=== PATIENT | female | born 2000 | race Caucasian/White ===

== ENCOUNTER → 2022-11-06 16:34 | Outpatient (CLI) | payer BC, SELFPAY ==
--- NOTE | 2022-11-06 16:58 | XR_ITS ---
PROCEDURE INFORMATION: Exam: XR Lumbosacral Spine Exam date and time: 11/06/2022 5:00 PM Age: 22 years old Clinical indication: Low back pain; Additional info: Left low back pain with bilateral sciatica TECHNIQUE: Imaging protocol: Radiologic exam of the lumbosacral spine. Views: 2 or 3 views. COMPARISON: No relevant prior studies available. FINDINGS: Bones/joints: Lumbar curvature and alignment is unremarkable. There is no fracture or spondylolisthesis. Pedicles are intact. Disc heights are maintained. No significant degenerative changes. Soft tissues: Paraspinal soft tissues are unremarkable. IMPRESSION: Normal lumbar spine.
== END ==
PROVIDERS: PCP Nurse Practitioner; Visit Provider Nurse Practitioner
DX: M54.41 Lumbago with sciatica, right side (principal); M54.42 Lumbago with sciatica, left side; M62.830 Muscle spasm of back
CPT/HCPCS: 72100

== ENCOUNTER → 2022-11-15 10:52 | Outpatient (CLI) | payer BC, SELFPAY ==
--- NOTE | 2022-11-15 10:53 | MR_ITS ---
FINAL REPORT TECHNIQUE: Multiplanar and multisequence imaging of the lumbar spine was obtained without contrast. CLINICAL HISTORY: left low back pain with bilateral sciatica. COMPARISON: none FINDINGS: There is normal alignment of the lumbar vertebral bodies. Vertebral body height is preserved. The spinal cord ends at the level of L1. There is normal signal intensity within the substance of the distal spinal cord. Bone marrow signal intensity is normal. No acute paraspinal abnormality is identified. Incidental note is made of horseshoe kidney. L1-2: There is no focal disc herniation, central canal stenosis or neuroforaminal narrowing. L2-3: There is no focal disc herniation, central canal stenosis or neuroforaminal narrowing. L3-4: There is no focal disc herniation, central canal stenosis or neuroforaminal narrowing. L4-5: Annular bulge with very mild degenerative endplate changes and facet osteoarthropathy. Mild central canal stenosis and left foraminal narrowing. L5-S1: Very mild annular bulge. No central canal stenosis or significant foraminal narrowing. IMPRESSION: Early degenerative change at L4-5 and L5-S1. Otherwise no acute process. Incidental finding of horseshoe kidney. Reviewed, Interpreted and Dictated by Desirae Cheng MD Transcribed by Lelo Crowell Authenticated and [facility]
== END ==
PROVIDERS: PCP Nurse Practitioner; Visit Provider Nurse Practitioner
DX: M54.41 Lumbago with sciatica, right side (principal); M54.42 Lumbago with sciatica, left side; M62.830 Muscle spasm of back
CPT/HCPCS: 72148; 76376

== ENCOUNTER → 2025-09-07 16:01 | Outpatient (CLI) | payer OTHER, SELFPAY ==
--- OUTSIDE RECORDS SUMMARY | 2025-07-12 09:00 | XMS_ITS | Encounter Summary ---
Author Organization [facility] (a[facility]a. [facility] [employer] [facility]) Address [address] [place] [address] Care Team Providers Care Websphere Consultant Name Role Phone Unassigned, Doctor Primary Care Provider Unav ailable Reason for Visit * Radiology Services (Routine) - Authorized Specialty Diagnoses / Procedures Referred By Gene fonseca Referred To Contact Radiology Diagnoses Encounter for supervision of low-risk in second trimester Procedures US OB ULTRASOUND COMP W DETAILED CALLIE Iona Soria MD [address] [place] [address] Phone: tel: fax: [facility] Obstetrics and Gynecology [facility] [address] [address] Phone: tel: fax: Referral ID Status Reason Start Date Expiration Date V isits Requested Visits Authorized [id number] Authorized 06/22/2025 06/22/2026 1 1 Encounter Details Date Type Department Care Team (Late st Contact Info) Description 07/12/2025 10:00 AM EDT Ancillary Procedure [facility] Obstetrics and Gynecology [address] [address] Social History Tobacco Use Types Packs/Day Years Used Date Smoking Tobacco: Every Day Cigarettes 1 5 Smokeless Tobacco: Never Alcohol Use Standard Drinks/Week Comments Not Currently 0 (1 standard drink = 0.6 oz pur e alcohol) PHQ-2 Answer Date Recorded Patient Health Questionnaire-2 Score 0 06/22/2025 Education Answer Date Recorded What is the highest level of school you have completed or the highest degree you have received? Some college, no degree 06/22/2025 Estimated Date of Delivery Comme nts Yes 10/03/2025 Based on Ultraso und Sex and Gender Information Value Date Recorded Sex Assigned at Not on file Legal Sex Female 2:01 PM EDT Gender Identity Not on file Sexual Orientation Not on file documented as of this encounter Functional Status * Narx Overdose Risk Score Question Answer Date of Assessment Author Status Overdose Risk Score 280 07/12/2025 9:56 AM EDT Inte rface, Appriss Aman Active * Narx Scores Question Answer Date of Assessment Author Status Narcotic Score 020 07/12/2025 9:56 AM EDT Interface , Appriss Aman Active Sedative Score 010 07/12/2025 9:56 AM EDT Interface , Appriss Aman Active Stimulant Score 000 07/12/2025 9:56 AM EDT Interfac e, Appriss Aman Active documented as of this encounter Plan of Treatment Not on file documented as of this encounter Procedures Procedure Name Priority Date/Time Associated Diagnosis Comments US OB ULTRASOUND COMP W DETAILED CALLIE Routine 07/12/2025 11:13 AM EDT Encounter for supervision of low-risk in second trimester documented in this encounter Results * US OB ULTRASOUND COMP W DETAILED CALLIE (07/12/2025 11:13 AM EDT) Anatomical Region Laterality Modality Abdomen Ultrasound 07/12/2025 10:0 4 AM EDT Iona Soria MD RADIOLOGY US ORD ERABLES Final Result documented in this encounter Visit Diagnoses Diagnosis Encounter for supervision of low-risk in second trimester documented in this encounter Care Teams Websphere Consultant Relationship Specialty Start Date End Date Unassigned, MD [place] PCP - General Family Medicine 03/29/25 documented as of this encounter Additional Source Comments PROHIBITION ON REDISCLOSURE: In the event these records contain information protected by 42 CFR Part 2, (i.e., would identify the patient as a substance abuser and was obtained by a federally assisted substance abuse program to diagnose, refer for treatment, or treat the patient for substance abuse), please be advised of the following: This information has been disclosed to you from records protected by Federal confidentiality rules (42 CFR part 2). The Federal rules prohibit you from making any further disclosure of this information unless further disclosure is expressly permitted by the written consent of the person to whom it pertains or as otherwise permitted by 42 CFR part 2. A general authorization for the release of medical or other information is NOT sufficient for this purpose. The Federal rules restrict any use of this information to criminally investigate or prosecute any alcohol or drug abuse patient. [facility] ([facility])
--- OUTSIDE RECORDS SUMMARY | 2025-07-12 10:35 | XMS_ITS | Encounter Summary ---
Author Organization [facility] ([facility]) Address [address] [place] [address] Care Team Providers Care Storeperson Name Role Phone Unassigned, Doctor Primary Care Provider Unav ailable Reason for Referral * Radiology Services (Routine) - Authorized Specialty Diagnoses / Procedures Referred By Gene fonseca Referred To Contact Radiology Diagnoses Encounter for supervision of normal first in third trimester Procedures US OB REAL TIME FOLLOW [place] [address] [place] [address] Phone: tel: fax: [facility] Obstetrics and Gynecology [facility] [place] [address] [id number] Phone: tel: fax: Referral ID Status Reason Start Date Expiration Date V isits Requested Visits Authorized [id number] Authorized 07/12/2025 07/12/2026 1 1 Reason for Visit * Reason Comments Return OB Visit Encounter Details Date Type Department Care Team (Late st Contact Info) Description 07/12/2025 11:35 AM EDT Routine [facility] [address] [place], [place] [id number] Iona Soria MD [address] [place] [address] GA: [id number] Social History Tobacco Use Types Packs/Day Years Used Date Smoking Tobacco: Every Day Cigarettes 1 5 Smokeless Tobacco: Never Tobacco Cessation:Ready to Q uit: Not Asked; Counseling Given: Not Answered Alcohol Use Standard Drinks/Week Comments Not Currently [...] on file documented as of this encounter Last Filed Vital Signs Vital Sign Reading Time Taken Comments Blood Pressure 126/83 07/12/2025 11:40 AM EDT Pulse 97 07/12/2025 11:40 AM EDT Temperature - - Respiratory Rate - - Oxygen Saturation - - Inhaled Oxygen Concentration - - Weight 151.5 kg (334 lb 1.6 oz) 025 11:40 AM EDT Height 170.2 cm (5' 7 ) 07/12/2025 11:4 0 AM EDT Body Mass Index 52.33 07/12/2025 11:40 AM EDT documented in this encounter Functional Status * BP Answer Date of Assessment Author Status 126/83 07/12/2025 11:40 AM EDT Lacy King MA Active * Pulse Answer Date of Assessment Author Status 97 07/12/2025 11:40 AM EDT Lacy King MA Active * Height Answer Date of Assessment Author Status 67 07/12/2025 11:40 AM EDT Lacy King MA Active * Weight Answer Date of Assessment Author Status 5345.6 07/12/2025 11:40 AM EDT Lacy King MA Active * BMI Answer Date of Assessment Author Status 52.327 07/12/2025 11:40 AM Lacy Vidales MA Active * BSA Answer Date of Assessment Author Status 2.68 07/12/2025 11:40 AM Lacy Vidales MA Active documented as of this encounter Mental Status * BP Answer Entry Date Author Status 126/83 07/12/2025 11:40 AM Lacy Vidales MA Active * Pulse Answer Entry Date Author Status 97 07/12/2025 11:40 AM EDLacy Mendoza MA Active * BMI Answer Entry Date Author Status 52.327 07/12/2025 11:40 AM Lacy Vidales MA Active documented in this encounter Progress Notes * Iona Soria MD - 07/12/2025 11:35 AM EDT Images from the original note were not included. [address] [address] Return Obstetric Visit Subjective: Anali Perez is a 24yrs at 28w1d by 19wk US who presents for a routine visit. Problem List Leukocytosis Rh negative Anemia She reports that she is concerned about: Vaginal bleeding: No Contraction like pain: No Leakage of fluid: No Decreased movement: No Doing well. FAS performed today. Largely reassuring. Some SO structures noted. Discussed need for 3rd trimester labs today. She wants to do them another day. Too tired today. Still smoking some and counseled on cessation. Objective: Vitals (BP/HT/WT/BMI) BP 126/83 Pulse 97 Ht 5' 7 (1.702 m) Wt (!) 334 lb 1.6 oz (151.5 kg) LMP (LMP Unknown) BMI 52.33 kg/m?? Physical Exam Genitourinary: Uterus is not tender. Uterus exam comments: gravid. Pulmonary: Effort: Pulmonary effort is normal. Abdominal: Palpations: Abdomen is soft. Tenderness: There is no abdominal tenderness. Musculoskeletal: Right lower leg: No edema. Left lower leg: No edema. Neurological: Mental Status: She is alert. Psychiatric: Behavior: Behavior normal. Physical Exam cont'd: Cervical Exam: HR: 148 Fundal Height: (FAS performed today.) This visit UA: Recent Results (from the past 24 hours) URINE DIPSTICK (URINE ANALYZER) CLINIC PERFORMED W/CPT (61337) Result Value Ref Range Color, urine Yellow Yellow Appearance, urine Clear Clear Glucose, urine neg Negative - 100 mg/dL Bilirubin, urine neg Negative - Small Ketones, urine neg Negative - Trace mg/dl Specific [place], urine 1.020 1.000 - 1.030 Blood, urine neg Negative - Trace mg/dL pH, urine 7.0 5.0 - 8.5 Protein, urine neg Negative - Trace mg/dL Urobilinogen, urine 0.2 0.2 - 2 EU Nitrites, urine neg Negative - Positive Leukocyte Esterase, urine neg Negative - Trace A&P by Problem This is a 24yrs at 28w1d with: Assessment & Plan Encounter for supervision of normal first in third trimester Orders: URINE DIPSTICK (URINE ANALYZER) CLINIC PERFORMED W/CPT (97150) US OB REAL TIME FOLLOW UP, PER FETUS; Future GLUCOLA SCREEN; Future HIV AB/AG COMBINED ASSAY; Future RPR, REFLEX QN RPR/CONFIRM TP-PA ([facility]); Future CBC WITHOUT DIFFERENTIAL; Future ABO/RH (D); Future ANTIBODY SCREEN; Future Screening for viral disease Orders: HIV AB/AG COMBINED ASSAY; Future Screening examination for venereal disease Orders: RPR, REFLEX QN RPR/CONFIRM TP-PA ([facility]); Future Tobacco use disorder complicating , childbirth, or puerperium, antepartum Supervision of high risk in third trimester Follow up Return for KARLA in 2 weeks. KARLA/Growth in 4 weeks. KARLA in 6 weeks.. Labs ordered, she will come back before next visit to have labs drawn. labor precautions discussed and kick counts emphasized. Anticipatory guidance provided. Future Appointments Date Time Provider Department Center 07/13/2025 9:30 AM [facility] 07/15/2025 8:10 AM Janelle Pablo CNM [facility] 07/27/2025 3:30 PM [facility]/10/[facility]25 11:00 AM [facility] 08/10/2025 12:50 PM Melida Hernandez CNM [facility] 08/24/2025 11:10 AM Yaquelin Aguirre, [facility] Dante Soria MD 07/12/2025 documented in this encounter Plan of Treatment Scheduled Orders Name Type Priority Associated Diagnoses Orde r Schedule GLUCOLA SCREEN Laboratory Routine Encounter for supervision of normal first in third trimester Expected: 07/12/2025, Expires: 10/10/2025 HIV AB/AG COMBINED ASSAY Laboratory Routine Encounter for supervision of normal first in third trimester Screening for viral disease Expected: 07/12/2025, Expires: 10/10/2025 RPR, REFLEX QN RPR/CONFIRM TP-PA ([facility]) Laboratory Routine Encounter for supervision of normal first in third trimester Screening examination for venereal disease Expected: 07/12/2025, Expires: 10/10/2025 CBC WITHOUT DIFFERENTIAL Laboratory Routine Encounter for supervision of normal first in third trimester Expected: 07/12/2025, Expires: 10/10/2025 ABO/RH (D) Laboratory Routine Encounter for supervision of normal first in third trimester Expected: 07/12/2025, Expires: 10/10/2025 ANTIBODY SCREEN Laboratory Routine Encounter for supervision of normal first in third trimester Expected: 07/12/2025, Expires: 10/10/2025 documented as of this encounter Procedures Procedure Name Priority Date/Time Associated Diagnosis Comments URINE DIPSTICK (URINE ANALYZER) CLINIC PERFORMED W/CPT (61201) Routine 07/12/2025 Encounter for supervision of normal first in third trimester documented in this encounter Results * US OB REAL TIME FOLLOW UP, PER FETUS (08/10/2025 1:49 PM EST) Anatomical Region Laterality Modality Abdomen Ultrasound 08/10/2025 1:05 PM EST us Iona Soria MD RADIOLOGY US ORD ERABLES Final Result * (ABNORMAL) URINE DIPSTICK (URINE ANALYZER) CLINIC PERFORMED W/CPT (50680) (07/12/2025) Color, urine Yellow Yellow ACAD POC/CLINIC PERFORMED ([facility] CERTIFIED) Appearance, urine Clear Clear ACAD POC/CLINIC PERFORMED ([facility] CERTIFIED) Glucose, urine neg Negative - 100 mg/dL ACAD POC/CLINIC PERFORMED ([facility] CERTIFIED) Bilirubin, urine neg Negative - Small ACAD POC/CLINIC PERFORMED ([facility] CERTIFIED) Ketones, urine neg Negative - Trace mg/dl ACAD POC/CLINIC PERFORMED ([facility] CERTIFIED) Specific [place], urine 1.020 1.000 - 1.030 ACAD POC/CLINIC PERFORMED ([facility] CERTIFIED) Blood, urine neg Negative - Trace mg/dL ACAD POC/CLINIC PERFORMED ([facility] CERTIFIED) pH, urine 7.0 5.0 - 8.5 ACAD POC/CLINIC PERFORMED ([facility] CERTIFIED) Protein, urine neg Negative - Trace mg/dL ACAD POC/CLINIC PERFORMED ([facility] CERTIFIED) Urobilinogen, urine 0.2 0.2 - 2 EU ACAD POC/CLINIC PERFORMED ([facility] CERTIFIED) Nitrites, urine neg Negative - Positive ACAD POC/CLINIC PERFORMED ([facility] CERTIFIED) Leukocyte Esterase, urine neg Negative - Trace ACAD POC/CLINIC PERFORMED ([facility] CERTIFIED) Urine 07/12/2025 Iona Soria MD [facility] O RDERABLES Final Result ACAD POC/CLINIC PERFORMED ([facility] CERTIFIED) [address] [place] [address] documented in this encounter Visit Diagnoses Diagnosis Encounter for supervision of normal first in third trimester- Primary Supervision of normal first Screening for viral disease Special screening examination for unspecified viral disease Screening examination for venereal disease Tobacco use disorder complicating , childbirth, or puerperium, antepartum Supervision of high risk in third trimester Unspecified high-risk * Assessment & Plan Note - Iona Soria MD - 07/12/2025 11:35 AM EDTAssociated Problem(s): Care Orders: URINE DIPSTICK (URINE ANALYZER) CLINIC PERFORMED W/CPT (68325) US OB REAL TIME FOLLOW UP, PER FETUS; Future GLUCOLA SCREEN; Future HIV AB/AG COMBINED ASSAY; Future RPR, REFLEX QN RPR/CONFIRM TP-PA ([facility]); Future CBC WITHOUT DIFFERENTIAL; Future ABO/RH (D); Future ANTIBODY SCREEN; Future * Assessment & Plan Note - Iona Soria MD - 07/12/2025 11:35 AM EDTAssociated Problem(s): Tobacco Use Disorder documented in this encounter Care Teams Storeperson Relationship Specialty Start Date End Date Unassigned, MD [place] PCP - General Family Medicine 03/29/25 documented [...] prosecute any alcohol or drug abuse patient. [employer]
--- OUTSIDE RECORDS SUMMARY | 2025-07-15 07:10 | XMS_ITS | Encounter Summary ---
Author Organization [facility] [employer] (a.k.a. V Formerly [facility]) Address [address] [place] [address] Care Team Providers Care Riveter Portable Machine Name Role Phone Unassigned, Doctor Primary Care Provider Unav ailable Reason for Visit * Reason Comments Return OB Visit Encounter Details Date Type Department Care Team (Late st Contact Info) Description 07/15/2025 8:10 AM EDT Initial Replaced by [facility] [address] [place] [address] Janelle Pablo CNM [address] [place] [address] GA: 28w4d Social History Tobacco Use Types Packs/Day Years Used Date Smoking Tobacco: Every Day Cigarettes 1 5 Smokeless Tobacco: Never Tobacco Cessation:Ready to Q uit: No; Counseling Given: Yes Alcohol Use Standard Drinks/Week Comments Not Currently 0 (1 standard drink = 0.6 oz pur e alcohol) PHQ-2 Answer Date Recorded Patient Health Questionnaire-2 Score 0 06/22/2025 AUDIT-C Answer Date Recorded Q1: How often do you have a drink containing alcohol? Never 07/27/2025 Q2: How many drinks containi ng alcohol do you have on a typical day when you are drinking? Patient does not drink Q3: How often do you have si x or more drinks on one occasion? Never 07/27/2025 Education Answer Date Recorded What is the [...] Sign Reading Time Taken Comments Blood Pressure 135/84 07/15/2025 8:21 AM EDT Pulse 118 07/15/2025 8:21 AM EDT Temperature - - Respiratory Rate - - Oxygen Saturation - - Inhaled Oxygen Concentration - - Weight 151.1 kg (333 lb 3.2 oz) 07/15/2025 8:21 AM EDT Height 170.2 cm (5' 7 ) 07/15/2025 8:21 AM EDT Body Mass Index 52.19 07/15/2025 8:21 AM EDT documented in this encounter Functional Status * BP Answer Date of Assessment Author Status 135/84 07/15/2025 8:21 AM EDT Mani Weller CMA Active * Pulse Answer Date of Assessment Author Status 118 07/15/2025 8:21 AM EDT Mani Weller PRODUCT CONSULTANT Active * Height Answer Date of Assessment Author Status 67 07/15/2025 8:21 AM EDT Mani Weller CMA Active * Weight Answer Date of Assessment Author Status 5331.2 07/15/2025 8:21 AM EDT Mani Weller PRODUCT CONSULTANT Active * Narx Overdose Risk Score Question Answer Date of Assessment Author Status Overdose Risk Score 280 07/15/2025 8:15 AM EDT Inte rface, Appriss Aman Active * Narx Scores Question Answer Date of Assessment Author Status Narcotic Score 020 07/15/2025 8:15 AM EDT Interface , Appriss Aman Active Sedative Score 010 07/15/2025 8:15 AM EDT Interface , Appriss Aman Active Stimulant Score 000 07/15/2025 8:15 AM EDT Interfac e, Appriss Aman Active * BMI Answer Date of Assessment Author Status 52.186 07/15/2025 8:21 AM EDT Mani Weller PRODUCT CONSULTANT Active * BSA Answer Date of Assessment Author Status 2.67 07/15/2025 8:21 AM EDT Mani Weller CMA Active documented as of this encounter Mental Status * BP Answer Entry Date Author Status 135/84 07/15/2025 8:21 AM EDT Mani Weller CMA Active * Pulse Answer Entry Date Author Status 118 07/15/2025 8:21 AM EDT Mani Weller CMA Active * BMI Answer Entry Date Author Status 52.186 07/15/2025 8:21 AM EDT Mani Weller CMA Active documented in this encounter Progress Notes * Amigo, JanelleJESSA brown - 07/15/2025 8:10 AM EDT Images from the original note were not included. [address] [place] [address] New Patient Obstetric Visit Subjective: Anali Perez is a 24yrs at 28w4d who presents for an initial visit. Dating Summary Working JUAN F: 10/03/2025 based on Ultrasound on 05/11/2025 Based On JUAN F GA Diff Last Menstrual Period on 12/29/2024 (LMP Unknown) Ultrasound on 05/11/2025 10/03/2025 Working GA: 19w2d This is Unplanned, Desired. Problem List Leukocytosis Rh negative Anemia Tobacco Use Disorder Care She reports that she is concerned about: Vaginal bleeding: No Contraction like pain: No Leakage of fluid: No No concerns. OB History OB History Para Term AB Living 1 0 0 0 0 0 SAB IAB Ectopic Molar Multiple Live Births 0 0 0 0 0 0 # Outcome Date GA Lbr Harlan/2nd Weight Sex Type Anes PTL Lv 1 Current Gynecologic History: Last Pap: due; requests to defer to 36 weeks History of abnormal Pap Smears: No Sexual History She reports being sexually active and has had partner(s) who are male. She reports using the following method of control/protection: Condom. History of sexually transmitted infections? No History: Past Medical History Past Medical History[1] Past Surgical History Past Surgical History[2] Social Documentation Social History[3] Family History Family History[4] Current Outpatient Medications Medication Instructions ferrous sulfate (IRON ORAL) Oral, DIRECTED, Takes once or twice a week per pt PNV no.153/FA/om3/dha/epa/fish ( GUMMIES ORAL) Take by mouth. Allergies Allergies[5] Additional nurse intake screenings and questionnaires reviewed and incorporated into the care plan and problem list where appropriate. Objective: Vitals (BP/HT/WT/BMI) BP 135/84 (Cuff Size: Large Adult) Pulse (!) 118 Ht 5' 7 (1.702 m) Wt (!) 333 lb 3.2 oz (151.1 kg) LMP (LMP Unknown) BMI 52.19 kg/m?? Physical Exam Constitutional: Appearance: Normal appearance. She is obese. HENT: Right Ear: External ear normal. Left Ear: External ear normal. Nose: Nose normal. Cardiovascular: Rate and Rhythm: Normal rate and regular rhythm. Pulses: Normal pulses. Heart sounds: Normal heart sounds. No murmur heard. Pulmonary: Effort: Pulmonary effort is normal. Breath sounds: Normal breath sounds. Abdominal: Palpations: Abdomen is soft. There is no mass. Tenderness: There is no abdominal tenderness. Musculoskeletal: General: Normal range of motion. Cervical back: Neck supple. No tenderness. Right lower leg: No edema. Left lower leg: No edema. Lymphadenopathy: Cervical: No cervical adenopathy. Neurological: Mental Status: She is alert and oriented to person, place, and time. Deep Tendon Reflexes: Reflexes normal. Skin: General: Skin is warm and dry. Findings: No lesion or rash. Psychiatric: Mood and Affect: Mood normal. Behavior: Behavior normal. Vitals reviewed. This visit UA: No results found for this or any previous visit (from the past 24 hours). A&P by Problem This is a 24yrs at 28w4d with: Assessment & Plan Care - PTL precautions and kick counts reviewed - US from 07/12 reviewed; follow up incomplete anatomy on growth US in 4 weeks 28.1wk 07/12/25 1299g 2#14 65% MVP 7.0 Cephalic ANTERIOR gr 1 pl. 3VC. SO septum, LVOT, AA, pulmonary veins. - initial labs today; follow up results Orders: (PANEL)-CBC WITH DIFFERENTIAL; Future GLUCOSE TOLERANCE TEST 50G, 1 HOUR; Future HIV AB/AG COMBINED ASSAY; Future INITIAL SYPHILIS SCREEN (FTAB) W/ REFLEX TO RPR(EMC); Future ABO/RH (D); Future ANTIBODY SCREEN; Future ANTIBODY SCREEN CHLAMYDIA/GC AMPLIFIED PROBE; Future URINE DIPSTICK (URINE ANALYZER) CLINIC PERFORMED W/CPT (58091) Anemia - Fe supplement advised qod Rh negative - RhoGAM eval and administration today Orders: MATERNAL HEMORRHAGE SCREEN; Future Tobacco Use Disorder - expresses feeling guilty about smoking but feels like she's had too much stress to try to quit right now Need for rhogam due to Rh negative mother Orders: rho(D) immune globulin (RHOPHYLAC) 1,500 unit (300 mcg)/2 mL injection 300 mcg rho(D) immune globulin (RHOPHYLAC) 1,500 unit (300 mcg)/2 mL injection 300 mcg Monocytosis - follow up CBC Orders: (PANEL)-CBC WITH DIFFERENTIAL; Future BMI >50 - pipe setter referral At risk for domestic violence - SW referral Follow up Return for return visits as scheduled. Future Appointments Date Time Provider Department Center 07/27/2025 3:30 PM [facility] 08/10/2025 11:00 AM GREG MITCHELL OB ULTRASOUND 5 [facility] 08/10/2025 12:50 PM Melida Hernandez [facility] 08/24/2025 11:10 AM Yaquelin Aguirre [facility] ABRAHAM Valdez 07/15/2025 [1] Past Medical History: Diagnosis Date Obesity [2] Past Surgical History: Procedure Laterality Date TAYLOR - ABDOMINAL SURGERY SHX Right June 2024 Ovary removed [3] Social History Tobacco Use Smoking status: Every Day Current packs/day: 1.00 Average packs/day: 1 pack/day for 5.0 years (5.0 ttl pk-yrs) Types: Cigarettes Smokeless tobacco: Never Vaping Use Vaping status: Every Day Substances: Nicotine Substance Use Topics Alcohol use: Not Currently Drug use: Not Currently Types: Smoke [4] Family History Problem Relation Name Age of Onset Hypertension Father Antoine Perez Diabetes Father Antoine Perez [5] Allergies Allergen Reactions Clindamycin Hives documented in this encounter Plan of Treatment Pending Results Name Type Priority Associated Diagnoses Date /Time ABO/RH (D) Laboratory Routine Care 07/15/2025 10:38 AM EDT ANTIBODY SCREEN Laboratory Routine Care 07/15/2025 10:38 AM EDT Scheduled Orders Name Type Priority Associated Diagnoses Orde r Schedule ABO/RH (D) Laboratory Routine Care Expected: 07/15/2025, Expires: 10/13/2025 ANTIBODY SCREEN Laboratory Routine Care Expected: 07/15/2025, Expires: 08/14/2025 documented as of this encounter Procedures Procedure Name Priority Date/Time Associated Diagnosis Comments URINE DIPSTICK (URINE ANALYZER) CLINIC PERFORMED W/CPT (56324) Routine 07/15/2025 11:32 AM EDT Care CHLAMYDIA/GC AMPLIFIED PROBE Routine 07/15/2025 11:01 AM EDT Care INITIAL SYPHILIS SCREEN (FTAB) W/ REFLEX TO RPR(EMC) Routine 07/15/2025 10:38 AM EDT Care (PANEL)-CBC WITH DIFFERENTIAL Routine 07/15/2025 10:38 AM EDT Care Monocytosis CBC WITH DIFFERENTIAL Routine 07/15/2025 10:38 AM EDT Care HIV AB/AG COMBINED ASSAY Routine 07/15/2025 10:38 AM EDT Care GLUCOSE TOLERANCE TEST 50G, 1 HOUR Routine 07/15/2025 10:37 AM EDT Care MATERNAL HEMORRHAGE SCREEN Routine 07/15/2025 9:25 AM EDT Rh negative ANTIBODY SCREEN Routine 07/15/2025 9:25 AM EDT Care documented in this encounter Results * URINE DIPSTICK (URINE ANALYZER) CLINIC PERFORMED W/CPT (59870) (07/15/2025 11:32 AM EDT) Color, urine YELLOW Yellow ACAD POC/CLINIC PERFORMED (CLIA CERTIFIED) Appearance, urine CLEAR Clear [facility] POC/CLINIC PERFORMED (CLIA CERTIFIED) Glucose, urine NEG Negative - 100 mg/dL [facility] POC/CLINIC PERFORMED (CLIA CERTIFIED) Bilirubin, urine 1+ Negative - Small [facility] POC/CLINIC PERFORMED (CLIA CERTIFIED) Ketones, urine NEG Negative - Trace mg/dl [facility] POC/CLINIC PERFORMED (CLIA CERTIFIED) Specific [place], urine 1.025 1.000 - 1.030 [facility] POC/CLINIC PERFORMED (CLIA CERTIFIED) Blood, urine NEG Negative - Trace mg/dL [facility] POC/CLINIC PERFORMED (CLIA CERTIFIED) pH, urine 6.0 5.0 - 8.5 [facility] POC/CLINIC PERFORMED (CLIA CERTIFIED) Protein, urine 1+ Negative - Trace mg/dL AC[facility] POC/CLINIC PERFORMED (CLIA CERTIFIED) Urobilinogen, urine 0.2 0.2 - 2 EU [facility] POC/CLINIC PERFORMED (CLIA CERTIFIED) Nitrites, urine NEG Negative - Positive [facility] POC/CLINIC PERFORMED (CLIA CERTIFIED) Leukocyte Esterase, urine NEG Negative - Trace [facility] POC/CLINIC PERFORMED (CLIA CERTIFIED) Urine 07/15/2025 11:3 2 AM EDT Janelle aPblo CNM AMB LABORATORY ORDERABLES Fin al Result [facility] POC/CLINIC PERFORMED (CLIA CERTIFIED) [address] [place] [address] * CHLAMYDIA/GC AMPLIFIED PROBE (07/15/2025 11:01 AM EDT) Chlamydia Amplified Probe Negative Negative 07/16/2025 11:28 AM EDT [facility] (ACCREDITED BY THE COLLEGE OF FINNISH PATHOLOGISTS) GC Amplified Probe Negative Negative 07/16/2025 11:28 AM EDT [facility] (ACCREDITED BY THE COLLEGE OF FINNISH PATHOLOGISTS) Urine URINE / Unknown Non-blood Collection / Unknown 07/15/2025 11:01 AM EDT 07/15/2025 11:01 AM EDT Narrative [facility] (ACCREDITED BY THE COLLEGE OF FINNISH PATHOLOGISTS) - 07/16/2025 11:28 AM EDT With endocervical and vaginal specimens, assay interference may be observed in the presence of blood or mucin. With urine specimens, assay interference may be observed in the presence of blood , mucin, bilirubin, or intravaginal topical hygiene products such as Vagisil. The effects of other potential variables such as vaginal discharge, use of tampons, and douching have not been determined. This assay should not be used for the evaluation of suspected sexual abuse or for other medico-legal indications. It is intended for clinical use only. Result(s) obtained by polymerase chain reaction (PCR). Janelle Pablo [facility] LAB MICROBIOLOGY ORDERABLES F inal Result [facility] (ACCREDITED BY THE COLLEGE OF FINNISH PATHOLOGISTS) [address] [id number] * (ABNORMAL) CBC WITH DIFFERENTIAL (07/15/2025 10:38 AM EDT) WBC (White Blood Cell Count) 24.11(H) 4.50 - 11.00 k/uL 07/15/2025 10:58 AM [facility] (ACCREDITED BY THE COLLEGE OF FINNISH PATHOLOGISTS) RBC (Red Blood Cell Count) 3.60(L) 3.80 - 5.20 M/uL 07/15/2025 10:58 AM T [facility] (ACCREDITED BY THE COLLEGE OF FINNISH PATHOLOGISTS) Hemoglobin 10.7(L) 12.0 - 16.0 g/dL 07/15/2025 10:58 AM [facility] (ACCREDITED BY THE COLLEGE OF FINNISH PATHOLOGISTS) Hematocrit 32.6(L) 35.0 - 47.0 % 07/15/2025 10:58 AM T [facility] (ACCREDITED BY THE COLLEGE OF FINNISH PATHOLOGISTS) MCV (Mean Corpuscular Volume) 90.6 80.0 - 100.0 fL 07/15/2025 10:58 AM [facility] (ACCREDITED BY THE COLLEGE OF FINNISH PATHOLOGISTS) MCH (Mean Corpuscular Hemoglobin) 29.7 26.0 - 34.0 pg 07/15/2025 10:58 AM [facility] (ACCREDITED BY THE COLLEGE OF FINNISH PATHOLOGISTS) MCHC (Mean Corpuscular Hemoglobin Concentration) 32.8 32.0 - 36.0 g/dL 07/15/2025 10:58 AM [facility] (ACCREDITED BY THE COLLEGE OF FINNISH PATHOLOGISTS) RDW (Red Cell Distribution Width) 13.5 11.5 - 14.5 % 07/15/2025 10:58 AM [facility] (ACCREDITED BY THE COL[employer]GE OF FINNISH PATHOLOGISTS) Platelet Count 371 150 - 440 k/uL 07/15/2025 10:58 AM [facility] (ACCREDITED BY THE COL[employer]GE OF FINNISH PATHOLOGISTS) MPV (Mean Platelet Volume) 9.9 7.4 - 10.6 fL 07/15/2025 10:58 AM [facility] (ACCREDITED BY THE COLLEGE OF FINNISH PATHOLOGISTS) Nucleated RBC 0.0 0 /100 WBC 07/15/2025 10:58 AM [facility] (ACCREDITED BY THE COLLEGE OF FINNISH PATHOLOGISTS) Absolute Nucleated RBC (#) <0.01 0 k/uL 07/15/2025 10:58 AM [facility] (ACCREDITED BY THE COL[employer]GE OF FINNISH PATHOLOGISTS) Neutrophils (%) 81 % 10:58 AM [facility] (ACCREDITED BY THE COLLEGE OF FINNISH PATHOLOGISTS) Lymphocytes (%) 13 % 10:58 AM [facility] (ACCREDITED BY THE COL[employer]GE OF FINNISH PATHOLOGISTS) Monocytes (%) 3 % 07/15/2025 10:58 AM [facility] (ACCREDITED BY THE COLLEGE OF FINNISH PATHOLOGISTS) Eosinophils (%) 1 % 10:58 AM [facility] (ACCREDITED BY THE COLLEGE OF FINNISH PATHOLOGISTS) Basophils (%) 0 % 07/15/2025 10:58 AM [facility] (ACCREDITED BY THE COLLEGE OF FINNISH PATHOLOGISTS) Immature Granulocytes (%) 1 % 07/15/2025 10:58 AM [facility] (ACCREDITED BY THE COLLEGE OF FINNISH PATHOLOGISTS) Absolute Neutrophils (#) 19.47(H) 1.80 - 7.70 k/uL 07/15/2025 10:58 AM [facility] (ACCREDITED BY THE COLLEGE OF FINNISH PATHOLOGISTS) Absolute Lymphocytes (#) 3.24 1.00 - 4.80 k/uL 07/15/2025 10:58 AM [facility] (ACCREDITED BY THE COLLEGE OF FINNISH PATHOLOGISTS) Absolute Monocytes (#) 0.82(H) 0.00 - 0.80 k/uL 07/15/2025 10:58 AM EDT [facility] (ACCREDITED BY THE COLLEGE OF FINNISH PATHOLOGISTS) Absolute Eosinophils (#) 0.29 0.00 - 0.50 k/uL 07/15/2025 10:58 AM EDT [facility] (ACCREDITED BY THE COLLEGE OF FINNISH PATHOLOGISTS) Absolute Basophils (#) 0.09 0.00 - 0.20 k/uL 07/15/2025 10:58 AM EDT [facility] (ACCREDITED BY THE COLLEGE OF FINNISH PATHOLOGISTS) Absolute Immature Granulocytes (#) 0.20(H) 0 k/uL 07/15/2025 10:58 AM EDT [facility] (ACCREDITED BY THE COLLEGE OF FINNISH PATHOLOGISTS) Blood BLOOD SPECIMEN / Unknown Venipuncture / Unknown 07/15/2025 10:38 AM EDT 07/15/2025 10:38 AM EDT [facility] LAB BLOOD ORDERABLES Final Re sult [facility] (ACCREDITED BY THE COLLEGE OF FINNISH PATHOLOGISTS) [address] [place] [address] * INITIAL SYPHILIS SCREEN (FTAB) W/ REFLEX TO RPR(EMC) (07/15/2025 10:38 AM EDT) SYPHILIS ANTIBODIES Nonreactive Nonreactive 07/15/2025 11:40 AM EDT [facility] (ACCREDITED BY THE COL[employer]GE OF FINNISH PATHOLOGISTS ) Comment:Negative for antibod ies to Treponema pallidum, the causitive agent of Syphilis. Blood BLOOD SPECIMEN / Unknown Venipuncture / Unknown 07/15/2025 10:38 AM EDT 07/15/2025 10:38 AM EDT [facility] LAB BLOOD ORDERABLES Final Re sult [facility] (ACCREDITED BY THE COLLEGE OF FINNISH PATHOLOGISTS) [address] [place] [id number] * HIV AB/AG COMBINED ASSAY (07/15/2025 10:38 AM EDT) Pathologist [facility] HIV AG AB COMBO Negative Negative 07/15/2025 11:40 AM EDT [facility] (ACCREDITED BY THE COLLEGE OF FINNISH PATHOLOGISTS) Comment:Test performed by Ab aaron [employer] Operator HIV Ag/Ab Combo assay. Blood BLOOD SPECIMEN / Unknown Venipuncture / Unknown 07/15/2025 10:38 AM EDT 07/15/2025 10:38 AM EDT [facility] Final Re sult [facility] (ACCREDITED BY THE COLLEGE OF FINNISH PATHOLOGISTS) [address] [place] [id number] * GLUCOSE TOLERANCE TEST 50G, 1 HOUR (07/15/2025 10:37 AM EDT) [facility] Glucose (1 Hr) 144 See interpretation mg/dL 07/15/2025 11:16 AM EDT [facility] (ACCREDITED BY THE COLLEGE OF FINNISH PATHOLOGISTS ) Comment: One Hour post 50g load: < 135 mg/dL - Normal Glucose Tolerance Blood BLOOD SPECIMEN / Unknown Venipuncture / Unknown 07/15/2025 10:37 AM EDT 07/15/2025 10:38 AM EDT [facility] LAB BLOOD ORDERABLES Final Re sult [facility] (ACCREDITED BY THE COL[employer]GE OF FINNISH PATHOLOGISTS) [address] [place] [id number] * ANTIBODY SCREEN (07/15/2025 9:25 AM EDT) [facility] AB SCREEN Negative 07/15/2025 10:28 AM EDT [facility] (ACCREDITED BY THE COLLEGE OF FINNISH PATHOLOGISTS) Blood BLOOD SPECIMEN / Unknown Venipuncture / Unknown 07/15/2025 9:25 AM EDT 07/15/2025 9:26 AM EDT Janelle Pablo CNM LAB BLOOD BANK TEST ORDERABLE S Final Result Performing Organization Address City/[facility]/ZIP Co de Phone Number [facility] (ACCREDITED BY THE COL[employer]GE OF FIN[employer]ISH PATHOLOGISTS) [address] [place] [address], * MATERNAL HEMORRHAGE SCREEN (07/15/2025 9:25 AM EDT) ABO GROUP O 07/15/2025 10:28 AM EDT [facility] (ACCREDITED BY THE COL[employer]GE OF FIN[employer]ISH PATHOLOGISTS) RH TYPE Negative 07/15/2025 10:28 AM EDT [facility] (ACCREDITED BY THE COL[employer]GE OF FINNISH PATHOLOGISTS) Blood BLOOD SPECIMEN / Unknown Venipuncture / Unknown 07/15/2025 9:25 AM EDT 07/15/2025 9:26 AM EDT Janelle UMANA LAB BLOOD BANK TEST ORDERABLE S Final Result Performing Organization Address City/[facility]/ZIP Co de Phone Number [facility] (ACCREDITED BY THE [employer] OF FIN[employer]ISH PATHOLOGISTS) [address] [place] [address], documented in this encounter Visit Diagnoses Diagnosis Care- Primary Supervision of normal first Anemia Anemia, antepartum Rh negative Rhesus isoimmunization affecting management of mother, antepartum condition Tobacco Use Disorder Need for rhogam due to Rh negative mother Need for prophylactic immunotherapy Monocytosis Monocytosis (symptomatic) BMI >50 Obesity complicating , childbirth, or the puerperium, antepartum condition or complication At risk for domestic violence Reserved for inherently not codable concepts WITHOUT codable children * Assessment & Plan Note - Janelle Pablo CNM - 07/15/2025 8:10 AM EDT Associated Problem(s): Care - PTL precautions and kick counts reviewed - US from 07/12 reviewed; follow up incomplete anatomy on growth US in 4 weeks 28.1wk 07/12/25 1299g 2#14 65% MVP 7.0 Cephalic ANTERIOR gr 1 pl. 3VC. SO septum, LVOT, AA, pulmonary veins. - initial labs today; follow up results Orders: (PANEL)-CBC WITH DIFFERENTIAL; Future GLUCOSE TOLERANCE TEST 50G, 1 HOUR; Future HIV AB/AG COMBINED ASSAY; Future INITIAL SYPHILIS SCREEN (FTAB) W/ REFLEX TO RPR(EMC); Future ABO/RH (D); Future ANTIBODY SCREEN; Future ANTIBODY SCREEN CHLAMYDIA/GC AMPLIFIED PROBE; Future URINE DIPSTICK (URINE ANALYZER) CLINIC PERFORMED W/CPT (69105) * Assessment & Plan Note - Janelle Pablo CNM - 07/15/2025 8:10 AM EDT Associated Problem(s): Anemia - Fe supplement advised qod * Assessment & Plan Note - Janelle Pablo CNM - 07/15/2025 8:10 AM EDT Associated Problem(s): Rh negative - RhoGAM eval and administration today Orders: MATERNAL HEMORRHAGE SCREEN; Future * Assessment & Plan Note - Janelle Pablo CNM - 07/15/2025 8:10 AM EDT Associated Problem(s): Tobacco Use Disorder - expresses feeling guilty about smoking but feels like she's had too much stress to try to quit right now * Assessment & Plan Note - Janelle Pablo CNM - 07/15/2025 8:10 AM EDT Associated Problem(s): Leukocytosis - follow up CBC Orders: (PANEL)-CBC WITH DIFFERENTIAL; Future * Assessment & Plan Note - Janelle Pablo CNM - 07/15/2025 8:10 AM EDT Associated Problem(s): BMI >50 - pipe setter referral * Assessment & Plan Note - Janelle Pablo CNM - 07/15/2025 8:10 AM EDT Associated Problem(s): At risk for domestic violence - SW referral documented in this encounter Administered Medications Inactive Administered Medications - up to 3 most recent administrations Medication Order MAR Action Action Date Dose Rate Site rho(D) immune globulin (RHOPHYLAC) 1,500 unit (300 mcg)/2 mL injection 300 mcg 300 mcg, Intramuscular, ONCE, On Aby 07/15/25 at 1100, For 1 dose, Allow to come to room temperature before administration. Inject IM into the deltoid muscle of the upper arm or the anterolateral aspects of the upper thigh. Gluteal region is not recommended. Inpatient: This product is not supplied by pharmacy. The lab will dispense this medication for administration in appropriate patients.Indications:Need for rhogam due to Rh negative mother $ Given 07/15/2025 10:57 AM EDT 300 mcg Left Ventrogluteal documented in this encounter Care Teams Riveter Portable Machine Relationship Specialty Start Date End Date Unassigned, [...] prosecute any alcohol or drug abuse patient. Replaced by [facility] ([facility]a. Formerly [facility], Later [facility])
--- OUTSIDE RECORDS SUMMARY | 2025-07-27 15:30 | XMS_ITS | Encounter Summary ---
Author Organization Formerly [facility] (a.k[facility]a. [facility]) Address [address] [place] [address] Care Team Providers Care Chute Worker Name Role Phone Unassigned, Doctor Primary Care Provider Unav ailable Reason for Visit * Reason Comments Return OB Visit Encounter Details Date Type Department Care Team (Late st Contact Info) Description 07/27/2025 3:30 PM EST Routine [facility] Women's [address] [address] [place] [address] [place] [address] [place] [address] GA: 30w2d Social History Tobacco Use Types Packs/Day Years [...] Sign Reading Time Taken Comments Blood Pressure 103/68 07/27/2025 3:30 PM EST Pulse 123 07/27/2025 3:30 PM EST Temperature - - Respiratory Rate - - Oxygen Saturation - - Inhaled Oxygen Concentration - - Weight 153.1 kg (337 lb 9.6 oz) 07/27/2025 3:30 PM EST Height 170.2 cm (5' 7 ) 07/27/2025 3:30 PM EST Body Mass Index 52.88 07/27/2025 3:30 PM EST documented in this encounter Functional Status * BP Answer Date of Assessment Author Status 103/68 07/27/2025 3:30 PM EST Diane Loco ctive * Pulse Answer Date of Assessment Author Status 123 07/27/2025 3:30 PM EST Diane Loco ctive * Height Answer Date of Assessment Author Status 67 07/27/2025 3:30 PM EST Diane Loco ctive * Weight Answer Date of Assessment Author Status 5401.6 07/27/2025 3:30 PM EST Diane Loco ctive * Narx Overdose Risk Score Question Answer Date of Assessment Author Status Overdose Risk Score 280 07/27/2025 3:30 PM EST Inte rface, Appriss Aman Active * Narx Scores Question Answer Date of Assessment Author Status Narcotic Score 020 07/27/2025 3:30 PM EST Interface , Appriss Aman Active Sedative Score 010 07/27/2025 3:30 PM EST Interface , Appriss Aman Active Stimulant Score 000 07/27/2025 3:30 PM EST Interfac e, Appriss Aman Active * BMI Answer Date of Assessment Author Status 52.876 07/27/2025 3:30 PM EST Diane Loco ctive * BSA Answer Date of Assessment Author Status 2.69 07/27/2025 3:30 PM Diane Mtz ctive * AUDIT-C Score Answer Date of Assessment Author Status 0 07/27/2025 3:30 PM Diane Mtz * Alcohol Use Question Answer Date of Assessment Author Status Q1: How often do you have a drink containing alcohol? Never 07/27/2025 3:30 PM Diane Mtz Active Q2: How many drinks containing alcohol do you have on a typical day when you are drinking? Patient does not drink 07/27/2025 3:30 PM Diane Mtz Active Q3: How often do you have six or more drinks on one occasion? Never 07/27/2025 3:30 PM Diane Mtz Active documented as of this encounter Mental Status * BP Answer Entry Date Author Status 103/68 07/27/2025 3:30 PM Diane Mtz ctive * Pulse Answer Entry Date Author Status 123 07/27/2025 3:30 PM Diane Mtz ctive * BMI Answer Entry Date Author Status 52.876 07/27/2025 3:30 PM Diane Mtz ctive documented in this encounter Progress Notes * Golden Flores, JESSA - 07/27/2025 3:30 PM EST Images from the original note were not included. [address] [place] [address] Return Obstetric Visit Subjective: Anali Perez is a 24yrs at 30w2d by LMP + 19.2 wk US who presents for a routine prenatalvisit. Problem List Leukocytosis Rh negative Anemia Tobacco Use Disorder Care Horseshoe kidney History of dermoid cyst excision BMI >50 At risk for domestic violence Abnormal glucose tolerance test in She reports that she is concerned about: Vaginal bleeding: No Contraction like pain: No Leakage of fluid: No Decreased movement: No Objective: Vitals (BP/HT/WT/BMI) BP 103/68 Pulse (!) 123 Ht 5' 7 (1.702 m) Wt (!) 337 lb 9.6 oz (153.1 kg) LMP (LMP Unknown) BMI 52.88 kg/m?? Physical Exam Genitourinary: Uterus is not tender. Uterus exam comments: gravid. Pulmonary: Effort: Pulmonary effort is normal. Abdominal: Palpations: Abdomen is soft. Tenderness: There is no abdominal tenderness. Musculoskeletal: Right lower leg: No edema. Left lower leg: No edema. Neurological: Mental Status: She is alert. Psychiatric: Behavior: Behavior normal. Physical Exam cont'd: HR: 150 Fundal Height: 30 cm This visit UA: No results found for this or any previous visit (from the past 24 hours). A&P by Problem This is a 24yrs at 30w2d with: Assessment & Plan Care +fm no vb lof or ctx Reviewed fkc and labor precautions Pt lives 2.5 hours away They are anxious today and feeling like they don't have good clarification of what to expect She has had pains at her stomach and back at times Feels like pinching and lingering pain Reviewed comfort measures Discussed options and pt agree to checking blood sugars qid and will bring log to next appt Orders: URINE DIPSTICK (URINE ANALYZER) CLINIC PERFORMED W/CPT (01299) Rh negative Did she receive? Yes 07/15/25 Encounter for supervision of normal first in third trimester Orders: URINE DIPSTICK (URINE ANALYZER) CLINIC PERFORMED W/CPT (77561) Horseshoe kidney Do kidney functioning labs at next appt Follow up No follow-ups on file. 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 Yes 07/15/25 * Assessment & Plan Note - Golden Flores CNM - 07/27/2025 3:30 PM EST Associated Problem(s): Care +fm no vb lof or ctx Reviewed fkc and labor precautions Pt lives 2.5 hours away They are anxious today and feeling like they don't have good clarification of what to expect She has had pains at her stomach and back at times Feels like pinching and lingering pain Reviewed comfort measures Discussed options and pt agree to checking blood sugars qid and will bring log to next appt Orders: URINE DIPSTICK (URINE ANALYZER) CLINIC PERFORMED W/CPT ([id number]) * Assessment & Plan Note - Golden Flores CNM - 07/27/2025 3:30 PM EST Associated Problem(s): Horseshoe kidney Do kidney functioning labs at next appt * Assessment & Plan Note - Golden Flores CNM - 07/27/2025 3:30 PM EST Associated Problem(s): Care Orders: URINE DIPSTICK (URINE ANALYZER) CLINIC PERFORMED W/CPT ([id number]) documented in this encounter Care Teams Chute Worker Relationship Specialty Start Date End Date Unassigned, [...] prosecute any alcohol or drug abuse patient. [facility] [employer] (a.k[facility]a. [facility])
--- OUTSIDE RECORDS SUMMARY | 2025-08-10 13:00 | XMS_ITS | Encounter Summary ---
Author Organization [facility] (a.k.a. [facility] [employer]) Address [address] [place] [address] Care Team Providers Care Cleat Feeder Name Role Phone Unassigned, Doctor Primary Care Provider Unav ailable Reason for Visit * Radiology Services (Routine) - Authorized Specialty Diagnoses / Procedures Referred By Gene fonseca Referred To Contact Radiology Diagnoses Encounter for supervision of normal first in third trimester Procedures US OB REAL TIME FOLLOW UP, PER FETUS Iona Soria MD [address] [place] [address] Phone: tel: fax: [facility] Obstetrics and Gynecology [facility] Outpatient [address] [address] Phone: tel: fax: Referral ID Status Reason Start Date Expiration Date V isits Requested Visits Authorized [id number] Authorized 07/12/2025 07/12/2026 1 1 Encounter Details Date Type Department Care Team (Late st Contact Info) Description 08/10/2025 1:00 PM EST Ancillary Procedure [facility] Obstetrics and Gynecology [facility] Outpatient [address] [address] Social History Tobacco Use Types [...] Assessment Author Status Overdose Risk Score 280 08/10/2025 12:44 PM EST Int erface, Appriss Aman Active * Narx Scores Question Answer Date of Assessment Author Status Narcotic Score 020 08/10/2025 12:44 PM EST Interfac e, Appriss Aman Active Sedative Score 010 08/10/2025 12:44 PM EST Interfac e, Appriss Aman Active Stimulant Score 000 08/10/2025 12:44 PM EST Interfa ce, Appriss Aman Active documented as of this encounter Plan of Treatment Not on file documented as of this encounter Procedures Procedure Name Priority Date/Time Associated Diagnosis Comments US OB REAL TIME FOLLOW UP, PER FETUS Routine 08/10/2025 1:49 PM EST Encounter for supervision of normal first in third trimester documented in this encounter Results * US OB REAL TIME FOLLOW UP, PER FETUS (08/10/2025 1:49 PM EST) Anatomical Region Laterality Modality Abdomen Ultrasound 08/10/2025 1:05 PM EST us Iona Soria MD RADIOLOGY US ORD ERABLES Final Result documented in this encounter Visit Diagnoses Diagnosis Encounter for supervision of normal first in third trimester Supervision of normal first documented in this encounter Care Teams Cleat Feeder Relationship Specialty Start Date End Date Unassigned, [...] prosecute any alcohol or drug abuse patient. [facility] [employer] ([facility])
--- OUTSIDE RECORDS SUMMARY | 2025-08-16 14:30 | XMS_ITS | Encounter Summary ---
Author Organization [facility] (a.k[facility]a. [facility]) Address [address] [place] [address] Care Team Providers Care Silk Spotter Name Role Phone Unassigned, Doctor Primary Care Provider Unav ailable Reason for Visit * Reason Comments Return OB Visit Encounter Details Date Type Department Care Team (Late st Contact Info) Description 08/16/2025 2:30 PM EST Routine [facility] Women[facility] [address] [place], [place] [id number] [place] [address] [place] [address] [place] [address] GA: 33w1d Social History Tobacco Use Types Packs/Day Years Used Date Smoking Tobacco: Every Day Cigarettes 1 5 Passive Smoke Exposure: Current Smokeless Tobacco: Never Tobacco Cessation:Ready to Q uit: Yes; Counseling Given: Yes Alcohol Use Standard Drinks/Week [...] Sign Reading Time Taken Comments Blood Pressure 125/81 08/16/2025 2:45 PM EST Pulse 103 08/16/2025 2:45 PM EST Temperature - - Respiratory Rate - - Oxygen Saturation - - Inhaled Oxygen Concentration - - Weight 155.3 kg (342 lb 6.4 oz) 08/16/2025 2:45 PM EST Height 170.2 cm (5' 7 ) 08/16/2025 2:45 PM EST Body Mass Index 53.63 08/16/2025 2:45 PM EST documented in this encounter Functional Status * BP Answer Date of Assessment Author Status 125/81 08/16/2025 2:45 PM EST Watts, Chioma, REAGENT TENDER HELPER Active * Pulse Answer Date of Assessment Author Status 103 08/16/2025 2:45 PM EST Watts, Chioma, REAGENT TENDER HELPER Active * Height Answer Date of Assessment Author Status 67 08/16/2025 2:45 PM EST Watts, Chioma, REAGENT TENDER HELPER Active * Weight Answer Date of Assessment Author Status 5478.4 08/16/2025 2:45 PM EST Watts, Chioma, REAGENT TENDER HELPER Active * Narx Overdose Risk Score Question Answer Date of Assessment Author Status Overdose Risk Score 280 08/16/2025 2:16 PM EST Inte rface, Appriss Aman Active * Narx Scores Question Answer Date of Assessment Author Status Narcotic Score 020 08/16/2025 2:16 PM EST Interface , Appriss Aman Active Sedative Score 010 08/16/2025 2:16 PM EST Interface , Appriss Aman Active Stimulant Score 000 08/16/2025 2:16 PM EST Interfac e, Appriss Aman Active * BMI Answer Date of Assessment Author Status 53.627 08/16/2025 2:45 PM EST Watts, Chioma, REAGENT TENDER HELPER Active * BSA Answer Date of Assessment Author Status 2.71 08/16/2025 2:45 PM EST Watts, Chioma, REAGENT TENDER HELPER Active documented as of this encounter Mental Status * BP Answer Entry Date Author Status 125/81 08/16/2025 2:45 PM EST Watts, Chioma, REAGENT TENDER HELPER Active * Pulse Answer Entry Date Author Status 103 08/16/2025 2:45 PM EST Watts, Chioma, REAGENT TENDER HELPER Active * BMI Answer Entry Date Author Status 53.627 08/16/2025 2:45 PM EST Watts, Chioma, REAGENT TENDER HELPER Active documented in this encounter Progress Notes * Romina Lopez, CNM - 08/16/2025 2:30 PM EST Images from the original note were not included. [address] [place] [address] Return Obstetric Visit Subjective: Anali Perez is a 25yrs at 33w1d by 19.2wk US who presents for a routine visit. Problem List Leukocytosis Rh negative Anemia Tobacco Use Disorder Care Horseshoe kidney History of dermoid cyst excision BMI >50 At risk for domestic violence Abnormal glucose tolerance test in She reports that she is concerned about: Vaginal bleeding: No Contraction like pain: Yes (irregular) Leakage of fluid: No Decreased movement: No Objective: Vitals (BP/HT/WT/BMI) BP 125/81 Pulse (!) 103 Ht 5' 7 (1.702 m) Wt (!) 342 lb 6.4 oz (155.3 kg) LMP (LMP Unknown) BMI 53.63 kg/m?? Physical Exam Constitutional: Appearance: Normal appearance. HENT: Head: Normocephalic. Pulmonary: Effort: Pulmonary effort is normal. Abdominal: Comments: Obese, gravid, non tender Neurological: Mental Status: She is alert. Psychiatric: Mood and Affect: Mood normal. Behavior: Behavior normal. Physical Exam cont'd: HR: 141 This visit UA: Recent Results (from the past 24 hours) URINE DIPSTICK (URINE ANALYZER) CLINIC PERFORMED W/CPT ([id number]) Result Value Ref Range Color, urine Yellow Yellow Appearance, urine Clear Clear Glucose, urine neg Negative - 100 mg/dL Bilirubin, urine neg Negative - Small Ketones, urine neg Negative - Trace mg/dl Specific [place], urine 1.010 1.000 - 1.030 Blood, urine neg Negative - Trace mg/dL pH, urine 7.0 5.0 - 8.5 Protein, urine neg Negative - Trace mg/dL Urobilinogen, urine 0.2 0.2 - 2 EU Nitrites, urine neg Negative - Positive Leukocyte Esterase, urine neg Negative - Trace A&P by Problem This is a 25yrs at 33w1d with: Assessment & Plan Encounter for supervision of normal first in third trimester Declines flu vaccine today RSV handout provided- will consider next visit Orders: URINE DIPSTICK (URINE ANALYZER) CLINIC PERFORMED W/CPT ([id number]) BMI >50 NST weekly starting at 34 weeks Pt has NOT completed 3 hr gtt Pt reports checking blood glucose the last 2 weeks and all fbs < 95, 2 hr PP all wnl with one inthe 140's s/p checking at 1 hr PP- informed 1 hr PP <140 is wnl At risk for domestic violence FOB present Follow up Future Appointments Date Time Provider Department Center 08/24/2025 11:10 AM Yaquelin Aguirre CNM [facility] 08/27/2025 1:30 PM [facility] 08/27/2025 3:05 PM Mamie Lewis MD [facility] Romina Lopez CNM 08/16/2025 documented in this encounter Plan of Treatment Not on file documented as of this encounter Procedures Procedure Name Priority Date/Time Associated Diagnosis Comments URINE DIPSTICK (URINE ANALYZER) CLINIC PERFORMED W/CPT ([id number]) Routine 08/16/2025 2:45 PM EST Encounter for supervision of normal first in third trimester documented in this encounter Results * URINE DIPSTICK (URINE ANALYZER) CLINIC PERFORMED W/CPT ([id number]) (08/16/2025 2:45 PM EST) Color, urine Yellow Yellow ACAD POC/CLINIC PERFORMED (CLIA CERTIFIED) Appearance, urine Clear Clear ACAD POC/CLINIC PERFORMED (CLIA CERTIFIED) Glucose, urine neg Negative - 100 mg/dL ACAD POC/CLINIC PERFORMED (CLIA CERTIFIED) Bilirubin, urine neg Negative - Small ACAD POC/CLINIC PERFORMED (CLIA CERTIFIED) Ketones, urine neg Negative - Trace mg/dl ACAD POC/CLINIC PERFORMED (CLIA CERTIFIED) Specific [place], urine 1.010 1.000 - 1.030 ACAD POC/CLINIC PERFORMED (CLIA [...] Trace ACAD POC/CLINIC PERFORMED (CLIA CERTIFIED) Urine 08/16/2025 2:45 PM EST Romina Lopez CNM AMB LABORATORY ORDERABL ES Final Result ACAD POC/CLINIC PERFORMED (CLIA CERTIFIED) [address] [place] [address] documented in this encounter Visit Diagnoses Diagnosis Encounter for supervision of normal first in third trimester- Primary Supervision of normal first BMI >50 Obesity complicating , childbirth, or the puerperium, antepartum condition or complication At risk for domestic violence Reserved for inherently not codable concepts WITHOUT codable children * Assessment & Plan Note - Romina Lopez CNM - 08/16/2025 2:30 PM EST Associated Problem(s): BMI >50 NST weekly starting at 34 weeks Pt has NOT completed 3 hr gtt Pt reports checking blood glucose the last 2 weeks and all fbs < 95, 2 hr PP all wnl with one inthe 140's s/p checking at 1 hr PP- informed 1 hr PP <140 is wnl * Assessment & Plan Note - Romina Lopez CNM - 08/16/2025 2:30 PM EST Associated Problem(s): Care Declines flu vaccine today RSV handout provided- will consider next visit Orders: URINE DIPSTICK (URINE ANALYZER) CLINIC PERFORMED W/CPT ([id number]) * Assessment & Plan Note - Romina Lopez CNM - 08/16/2025 2:30 PM EST Associated Problem(s): At risk for domestic violence FOB present documented in this encounter Care Teams Silk Spotter Relationship Specialty Start Date End Date Unassigned, [...] prosecute any alcohol or drug abuse patient. [facility]
--- OUTSIDE RECORDS SUMMARY | 2025-09-07 16:12 | XMS_ITS | Encounter Summary ---
Author Organization [facility] ([facility]) Address [address] [place] [address] Care Team Providers Care Aircraft Electrical Systems Specialist Name Role Phone Unassigned, Doctor Primary Care Provider Unav ailable Reason for Visit * Reason Onset Date Comments Results 07/18/2025 Encounter Details Date Type Department Care Team (Late st Contact Info) Description 07/18/2025 Results Follow-Up [facility] Obstetrics and Gynecology [facility] Outpatient [address] [address] Janelle Pablo, JESSA [address] [id number] MATERNAL HEMORRHAGE SCREEN, GLUCOSE TOLERANCE TEST 50G, 1 HOUR, HIV AB/AG COMBINED ASSAY, Additional followed-up results: 5 Social History Tobacco Use Types Packs/Day Years [...] on file documented as of this encounter Consult Notes * Chasity Gaitan RN - 07/20/2025 8:33 AM EST ----- Message from Deb sent at 07/19/2025 10:01 AM EST ----- ----- Message ----- From: Janelle Pablo CNM Sent: 07/18/2025 10:23 AM EST To: [facility] Patrol Mother Nurse Please advise patient that she did not pass her 1hr glucose test. Order 3hr GTT, instruct patient on fasting procedure, and ask her to complete test as soon as possible. Also, patient's white count continues to increase. I'm going to discuss follow up for this with an attending and will let her know what, if anything, we need to do to evaluate this further. ----- Message ----- From: Lab, Background User Sent: 07/15/2025 10:29 AM EST To: Janelle Pablo CNM MCM sent to patient regarding the above information. Order placed in chart. Future Appointments Date Time Provider Department Center 07/27/2025 3:30 PM Golden Flores CNM [facility] 08/10/2025 11:00 AM [facility] 08/10/2025 12:50 PM Melida Hernandez CNM [facility] 08/24/2025 11:10 AM Yaquelin Aguirre CNM [facility] Electronically signed by Chasity Gaitan RN 07/20/2025 8:39 AM documented in this encounter Plan of Treatment Not on file documented as of this encounter Visit Diagnoses Diagnosis Special screening examination for diabetes mellitus- Primary Screening for diabetes mellitus documented in this encounter Care Teams Aircraft Electrical Systems Specialist Relationship Specialty Start Date End Date Unassigned, [...] prosecute any alcohol or drug abuse patient. [employer] [facility])
--- OUTSIDE RECORDS SUMMARY | 2025-09-07 16:12 | XMS_ITS | Data Portability ---
Author Organization [facility], [id number] Address [address] [place] [address] Assessment Encounter Date Assessment Date Assessment LastModified by Organization Details LastModified Time 04/30/2024 04/30/2024 Total face to face time 45 minutes. Greater than 50% spent counseling and /or coordinating care. See below for plan of care: Not available 05/01/2024 07:45:01 Plan of Treatment Reminders Order Date Submit Date Provider Last Modified By Organization Details Last Modified Time Details Appointments None recorded. Lab jr (risk of ovarian malignancy algorithm score), serum (premenopau lamar) 2023 024 [facility] [place] [place], [address], 4 16:36:10 HbA1c (hemoglobin A1c), blood 2023 024 [facility] [address] [place], [address], 4 16:36:12 CMP, serum or plasma 2023 024 [place] [facility], [address] [place], [address], 4 16:36:08 Referral None recorded. Procedures None recorded. Surgeries None recorded. Imaging US, transvagina l 2023 024 Not available 15:04:01 Medication Orders Wegovy 0.25 mg/0.5 mL subcutaneou s pen injector 2023 [id number], [address] [place], [place], [id number], 14:03:00 metformin ER 500 mg 24 hr tablet,exte nded release (gastric retention) 2023 [facility] #[id number], [address] [place], [place], [id number], 07:48:35 Patient TargetsNo targets recorded. Patient Instructions Encounter Date Encounter Id Patient Instructions Last Modified By Organization Details Last Modified Time 04/30/2024 [id number] body mass index: care instructions Not available 05/01/2024 07:48:29 learning about healthy weight Not available 05/01/2024 07:48:29 abnormal uterine bleeding: care instructions Not available 05/01/2024 07:48:28 Vaginal Bleeding (Nonpregnancy): Care Instructions Not available 05/01/2024 07:48:29 abdominal pain: care instructions Not available 05/01/2024 07:48:28 06/01/2024 [id number] body mass index: care instructions Not available 06/01/2024 14:02:49 learning about healthy weight Not available 06/01/2024 14:02:49 Reason for Referral None Reported. Results Created Date Observation Date Name Description Value Unit Range Abnormal Flag Note LastModifiedBy Organization Detail LastModifiedTime 05/01/2005/02/2024 COMP. METAB OLIC PANEL (14) glucose 56 mg/dL 70-99 below low normal Not Available [facility] ([facility]) [address] [facility], [place], [address], 05/02/2024 16:36:08 05/01/20 24 05/02/2024 COMP. METAB OLIC PANEL (14) BUN 10 mg/dL 6-20 normal Not Available [facility] ([facility]) [address] [place], [address], 05/02/2024 16:36:08 05/01/20 24 05/02/2024 COMP. METAB OLIC PANEL (14) creatinine 0.83 mg/dL 0.57-1 .00 normal Not Available [facility] ([facility]) [address] [place], [address], 05/02/2024 16:36:08 05/01/20 24 05/02/2024 COMP. METAB OLIC PANEL (14) eGFR 102 mL/mi n/1.7 3 >59 normal Not Available [facility] ([facility]) [address] [place], [address], 05/02/2024 16:36:08 05/01/20 24 05/02/2024 COMP. METAB OLIC PANEL (14) BUN/creatini ne ratio 12 9-23 normal Not Available [facility] ([facility]) [address] [place], [address], 05/02/2024 16:36:08 05/01/20 24 05/02/2024 COMP. METAB OLIC PANEL (14) sodium 145 mmol/ L 134-14 4 above high normal Not Available [facility] ([facility]) [address] [place], [address], 05/02/2024 16:36:08 05/01/20 24 05/02/2024 COMP. METAB OLIC PANEL (14) potassium 4.7 mmol/ L 3.5-5. 2 normal Not Available [facility] ([facility]) [address] [place], [address], 05/02/2024 16:36:08 05/01/20 24 05/02/2024 COMP. METAB OLIC PANEL (14) chloride 102 mmol/ L 96-106 normal Not Available [facility] ([facility]) [address] [place], [address], 05/02/2024 16:36:08 05/01/20 24 05/02/2024 COMP. METAB OLIC PANEL (14) carbon dioxide, total 17 mmol/ L 20-29 below low normal Not Available [facility] ([facility]) [address] [place], [address], 05/02/2024 16:36:08 05/01/20 24 05/02/2024 COMP. METAB OLIC PANEL (14) calcium 9.8 mg/dL 8.7-10 .2 normal Not Available [facility] ([facility]) [address] [place], [address], 05/02/2024 16:36:08 05/01/20 24 05/02/2024 COMP. METAB OLIC PANEL (14) protein, total 6.4 g/dL 6.0-8. 5 normal Not Available [facility] ([facility]) [address] [place], [address], 05/02/2024 16:36:08 05/01/20 24 05/02/2024 COMP. METAB OLIC PANEL (14) albumin 4.6 g/dL 4.0-5. 0 normal Not Available [facility] ([facility]) [address] [place], [address], 05/02/2024 16:36:08 05/01/20 24 05/02/2024 COMP. METAB OLIC PANEL (14) globulin, total 1.8 g/dL 1.5-4. 5 Not Available [facility] ([facility]) [address] [place], [address], 05/02/2024 16:36:08 05/01/20 24 05/02/2024 COMP. METAB OLIC PANEL (14) bilirubin, total 0.3 mg/dL 0.0-1. 2 normal Not Available [facility] ([facility]) [address] [place], [address], 05/02/2024 16:36:08 05/01/20 24 05/02/2024 COMP. METAB OLIC PANEL (14) alkaline phosphatase 62 IU/L 44-121 normal Not Available [facility]) [address] [facility], [place], [address], 05/02/2024 16:36:08 05/01/20 24 05/02/2024 COMP. METAB OLIC PANEL (14) AST (SGOT) 11 IU/L 0-40 normal Not Available [facility] ([facility]) [address] [facility], [place], [address], 05/02/2024 16:36:08 05/01/20 24 05/02/2024 COMP. METAB OLIC PANEL (14) ALT (SGPT) 7 IU/L 0-32 normal Not Available [facility] ([facility]) [address] [facility], [place], [address], 05/02/2024 16:36:08 05/01/20 24 05/01/2024 OVARI AN SIMONE HERRMANN RISK- JR comment: Commen t The Risk for Ovari an Simone herrmann Algor ithm (JR ) test is inten ded to aid in asses sing wheth er a preme nopau lamar or postm enopa usal woman who prese nts with an ovari an adnex al mass is at high or low likel ihood of findi ng simone herrmann on surge ry. JR is indic ated for women who meet the follo wing crite adarsh: over age 18; ovari an adnex al mass prese nt for which surge ry is plann ed, and not yet refer red to an oncol ogist . JR must be inter prete d in conju nctio n with an indep enden t clini geo and radio logic al asses sment . The test is not inten ded as a scree dino or stand -albina e diagn ostic assay . HE4 and CA125 value s obtai du with diffe rent assay metho ds or kits canno t be used inter espinal eably . Not Available [facility] ([facility]) [address] [facility], [place], [address], 05/02/2024 16:36:10 05/01/20 24 05/02/2024 OVARI AN MALIG ALIZE RISK- JR cancer antigen (Ca) 125 10.1 U/mL 0.0-38 .1 normal Ge Diagn ostic s Elect ge milum inesc ence Immun oassa y (ECLI A) Value s obtai du with diffe rent assay metho ds or kits canno t be used inter [facility] . Resul ts canno t be inter prete d as absol [place] evide nce of the prese nce or absen ce of malig nant disea se. Not Available [facility] ([facility]) [address] [facility], [place], [address], 05/02/2024 16:36:10 05/01/20 24 05/02/2024 OVARI AN MALIG ALIZE RISK- JR he4 55.1 pmol/ L 0.0-61 .2 Ge Diagn ostic s Elect ge milum inesc ence Immun oassa y (ECLI A) Value s obtai du with diffe rent assay metho ds or kits canno t be used inter [facility] . Resul ts canno t be inter prete d as absol [place] evide nce of the prese nce or absen ce of malig nant disea se. Not Available [facility] ([facility]) [address] [facility], [place], [address], 05/02/2024 16:36:10 05/01/20 24 05/02/2024 OVARI AN MALIG ALIZE RISK- JR premenopausa l jr 0.90 see below Not Available [facility] ([facility]) [address] [facility], [place], [address], 05/02/2024 16:36:10 05/01/20 24 05/02/2024 OVARI AN MALIG ALIZE RISK- JR premenopausa l interp: low Commen t If the patie nt is preme nopau lamar, then the preme nopau lamar JR score of less than 1.14 is consi stent with a low likel ihood of findi ng a malig alize on surge ry. Not Available [facility] ([facility]) [address] [facility], [place], [address], 05/02/2024 16:36:10 05/01/20 24 05/02/2024 OVARI AN MALIG ALIZE RISK- JR postmenopaus al jr 0.97 see below Not Available [facility] ([facility]) [address] [facility], [place], [address], 05/02/2024 16:36:10 05/01/20 24 05/02/2024 OVARI AN MALIG ALIZE RISK- JR postmenopaus al interp: low Commen t If the patie nt is postm enopa usal, then the postm enopa usal JR score of less than 2.99 is consi stent with a low likel ihood of findi ng a malig alize on surge ry. Not Available [facility] ([facility]) [address] [facility], [place], [address], 05/02/2024 16:36:10 05/01/20 24 05/02/2024 HEMOG LOBIN A1C hemoglobin A1C 5.3 % 4.8-5. 6 normal Predi abete s: 5.7 - 6.4 Diabe iain: >6.4 Glyce luis carlos contr ol for adult s with diabe iain: <7.0 Not Available [facility] ([facility]) [address] [facility], [place], [address], 05/02/2024 16:36:12 06/10/20 24 06/10/2024 CBC WITH DIFFE RENTI AL white blood count 7.5 K/mm3 3.6-11 .1 normal Not Available [address], [address], 06/10/2024 09:34:29 06/10/20 24 06/10/2024 CBC WITH DIFFE RENTI AL red blood count 3.99 M/uL 3.69-4 .88 normal Not Available [address], [address], 06/10/2024 09:34:29 06/10/20 24 06/10/2024 CBC WITH DIFFE RENTI AL hemoglobin 12.0 g/dL 11.4-1 4.4 normal Not Available [address], [address], 06/10/2024 09:34:29 06/10/2006/10/2024 CBC WITH DIFFE RENTI AL hematocrit 36.7 % 33.3-4 1.4 normal Not Available [address], [address], 06/10/2024 09:34:29 06/10/20 24 06/10/2024 CBC WITH DIFFE RENTI AL mean corpuscular volume 92.0 fL 79.3-9 4.8 normal Not Available [address], [address], 06/10/2024 09:34:29 06/10/2006/10/2024 CBC WITH DIFFE RENTI AL mean corpuscular hemoglobin 30.1 pg 26.8-3 3.2 normal Not Available [address], [address], 06/10/2024 09:34:29 06/10/2006/10/2024 CBC WITH DIFFE RENTI AL mean corpuscular HGB conc 32.7 g/dL 33.5-3 5.5 low Not Available [address], [address], 06/10/2024 09:34:29 06/10/20 24 06/10/2024 CBC WITH DIFFE RENTI AL red cell distribution width 13.1 % 12.0-1 5.1 normal Not Available [address], [address], 06/10/2024 09:34:29 06/10/2006/10/2024 CBC WITH DIFFE RENTI AL platelet count 185 K/mm3 165-35 3 normal Not Available [address], [address], 06/10/2024 09:34:29 06/10/2006/10/2024 CBC WITH DIFFE RENTI AL mean platelet volume 10.0 fL 7.5-10 .6 normal Not Available [address], [address], 06/10/2024 09:34:29 06/10/20 24 06/10/2024 CBC WITH DIFFE RENTI AL neutrophils % 62.8 % 43.2-7 1.5 normal Not Available [address], [address], 06/10/2024 09:34:29 06/10/2006/10/2024 CBC WITH DIFFE RENTI AL immature granulocyte % 0.4 % 0.0-0. 5 normal Not Available [address], [address], 06/10/2024 09:34:29 06/10/2006/10/2024 CBC WITH DIFFE RENTI AL lymphocytes % 28.5 % 16.8-4 3.4 normal Not Available [address], [address], 06/10/2024 09:34:29 06/10/2006/10/2024 CBC WITH DIFFE RENTI AL monocytes % 5.9 % 4.6-12 .4 normal Not Available [address], [address], 06/10/2024 09:34:06/10/2006/10/2024 CBC WITH DIFFE RENTI AL eosinophils % 1.7 % 0.7-7. 8 normal Not Available [address], [address], 06/10/2024 09:34:29 06/10/20 24 06/10/2024 CBC WITH DIFFE RENTI AL basophils % 0.7 % 0.2-1. 2 normal Not Available [address], [address], 06/10/2024 09:34:29 06/10/2006/10/2024 CBC WITH DIFFE RENTI AL nucleated red blood cell % 0.0 0-0 normal Not Available [address], [address], 06/10/2024 09:34:29 06/10/20 24 06/10/2024 CBC WITH DIFFE RENTI AL neutrophil # 4.7 K/mm3 1.9-7. 2 normal Not Available [address], [address], 06/10/2024 09:34:29 06/10/20 24 06/10/2024 CBC WITH DIFFE RENTI AL immature granulocyte # 0.0 K/mm3 0.0-0. 1 normal Not Available [address], [address], 06/10/2024 09:34:29 06/10/2006/10/2024 CBC WITH DIFFE RENTI AL lymphocyte # 2.1 K/mm3 1.1-2. 7 normal Not Available [address], [address], 06/10/2024 09:34:29 06/10/20 24 06/10/2024 CBC WITH DIFFE RENTI AL monocyte # 0.4 K/mm3 0.3-0. 8 normal Not Available [address], [address], 06/10/2024 09:34:29 06/10/20 24 06/10/2024 CBC WITH DIFFE RENTI AL eosinophil # 0.1 K/mm3 0.0-0. 5 normal Not Available [address], [address], 06/10/2024 09:34:29 06/10/20 24 06/10/2024 CBC WITH DIFFE RENTI AL basophil # 0.1 K/mm3 0.0-0. 1 normal Not Available [address], [address], 06/10/2024 09:34:29 06/10/20 24 06/10/2024 CBC WITH DIFFE RENTI AL nucleated red blood cell # 0.0 K/mm3 0-0 normal PERFO RMED BY: [facility] - [address] [place] [address] - Eriberto mckeon MD Lab Medic al Dire tor - [email or web address] [employer] Not Available [address], [address], 06/10/2024 09:34:29 06/12/20 24 06/12/2024 PREGN ELDER TEST URINE test urine Negati ve negati ve normal PERFO RMED BY: [facility] - [address] [place] [address] - Eriberto mckeon MD Lab Medic al Dire tor - [phone] [email or web address] [employer] Not Available [address], [address], 06/12/2024 11:12:59 06/12/2006/12/2024 POC NOVA GLUCO SE POC nova glucose 99 mg/dL 74-106 normal PERFO RMED BY: [facility] - [address] [place] [address] - Eriberto mckeon MD Lab Medic al Dire tor - 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 The ovari an surfa ce is pink- ozuna, rylan h and focal ly disru pted with yello w, sebac eous mater ial protr uding from the disru ption . The ovary is opene d to revea l the entir ety of the ovary to be compr ised of a multi locul ated cysti c struc ture conta ining yello w, sebac eous mater ial, light -colo red hairs and a 0.6 x 0.5 x 0.4 cm calci fied fragm ent of white -ozuna mater ial. The cyst whiteside are pink- ozuna to white , rylan h and no papil phillip excre scenc es ident ified . No uninv olved ovari an paren chyma is ident ified . Repre senta tive secti ons are submi tted. RS/M/ 4 Time out of patirebekah nt 1315, time in forma bran 1320 on 06/12 for cold ische luis carlos time of 5 minut es. The total time in forma bran is appro aditi angel 50.5 hours . A. Right ovary , oopho recto my - Dermo id cyst (kelsy gn mono derma l terat timmy). CPT code 33677 ----- ----- ----- ----- ----- ----- ----- ----- ----- ----- ----- ----- ----- ----- ----- ----- ----- ----- -- - ML PERFO RMED BY: [facility] - [address] [place] [address] - Eriberto mckeon MD Lab Medic al Diremid [facility] - [email or web address] [employer] Not Available [address], [address], 06/15/2024 09:20:05 04/30/20 24 04/30/2024 US, trans vagin al RAD [email or web address] Not Avai lable 05/01/2024 15:08:48 04/30/20 24 04/30/2024 US, trans vagin al RAD sgarrettalbaugh Not Avai lable 05/01/2024 15:08:49 06/02/20 24 11/15/2022 imagi ng/candice avila resul t No observ ation record ed. [email or web address] [facility] (Med Record) [address], [place], [address], 06/03/2024 10:38:25 Result Notes None recorded. Problems Name Problem SNOMED Code Status Onset Date Resolution Date Notes Provider Name and Address Organization Details Recorded Time Anxiety 30093927 Active 2023 Zhanna Lee [facility] 14:22:30 Depressive disorder 26498585 Active 2023 Zhanna Lee [facility] 4 14:22:35 Bipolar disorder 70112780 Active 2023 Zhanna Lee [facility] 4 14:23:28 [facility] 73762116 Active 2023 MIRANDA PRATT BRAD BURGOS DO [address] , [place], [address] , [facility] 4 13:50:02 Obesity [id number] [facility] 2023 Roxy Pavon [facility] 4 07:49:37 Polycystic ovary syndrome [id number] [facility] 2023 Roxy Pavon [facility] 4 07:49:43 Problem Notes None recorded. Procedures Surgical History Date Name Laterality Status Provider Name and Address Organization Details Recorded Time extraction of wisdom tooth completed Zhanna Lee [facility] 04/30/2024 14:30:26 Imaging Results None recorded. Procedure Notes None recorded. Medical Equipment None Reported. Allergies Allergen ID Allergen Name Allergen Category Reaction Reaction Severity Criticality Documentation Date Start Date Code Code System Note Provider Name and Address Organization Details Recorded Time 350855 clindamyc in Not available hives Not available Not available 04/30/2024 2582 RxNorm Zhanna Lee [facility] 4 14:20:10 Medications Name Sig Start Date Stop Date Status Note LastModified by Organization Details LastModified Time cyclobenzapr ine 10 mg tablet TAKE 1 TABLET BY MOUTH 3 TIMES DAILY NEEDED FOR MUSCLE SPASMS. 04/30 completed Not Available Not Available Not Available ibuprofen 800 mg tablet TAKE 1 TABLET BY MOUTH EVERY 8 HOURS NEEDED FOR FEVER OR PAIN active Not Available Not Available No t Available lisinopril 20 mg tablet TAKE 1 TABLET BY MOUTH EVERY DAY 04/30 completed Not Available Not Available Not Available risperidone 2 mg tablet TAKE 1 Tablet BY MOUTH TWICE DAILY 04/30 completed Not Available Not Available Not Available carbamazepin e 200 mg tablet TAKE 1 Tablet BY MOUTH TWICE DAILY 04/30 completed Not Available Not Available Not Available famotidine 20 mg tablet TAKE 1 TABLET BY MOUTH TWICE DAILY 04/30 completed Not Available Not Available Not Available prednisone 50 mg tablet TAKE 1 TABLET BY MOUTH EVERY DAY AFTER A MEAL 04/30 completed Not Available Not Available Not Available metformin ER 500 mg tablet,exten ded release 24 hr TAKE 2 TABLETS BY MOUTH EVERY DAY 05/29 completed Not Available Not Available Not Available oxycodone 5 mg tablet TAKE 1 TABLET BY MOUTH EVERY 6 HOURS NEEDED FOR PAIN active Not Available Not Available No t Available hydroxyzine pamoate 25 mg capsule TAKE 1 CAPSULE BY MOUTH TWICE DAILY NEEDED FOR ANXIETY OR STRESS active Not Available Not Available No t Available metformin ER 500 mg 24 hr tablet,exten ded release (gastric retention) Take 2 tablets every day by oral route for 90 days. 2023 active Not Available Not Available Not Avai lable lurasidone 20 mg tablet TAKE 1 TABLET BY MOUTH EVERY DAY WITH A FATTY MEAL active Not Available Not Available No t Available Banophen 50 mg capsule TAKE 1 CAPSULE BY MOUTH EVERY 4 HOURS NEEDED FOR ITCHING 04/30 completed Not Available Not Available Not Available Wegovy 0.25 mg/0.5 mL subcutaneous pen injector active Not Available Not Available Not Available Vitals Date Recorded Body weight Body mass index (BMI) Body height Heart rate Systolic And Diastolic Provider Name and Address Organization Details Last Updated DateTime 04/30/2024 091067.1 g 42.4 kg/m2 170.18 cm 53 /min 108/71 mm[Hg] Zhanna Lee [facility] 04/30/2024 14:34:46 Date Recorded Body height Heart rate Body mass index (BMI) Body weight Systolic And Diastolic Provider Name and Address Organization Details Last Updated DateTime 05/29/2024 170.18 cm 56 /min 42.8 kg/m2 446152.1 5 g 113/73 mm[Hg] Malgorzata Brown [facility] 05/29/2024 13:28:51 Date Recorded Body height Body mass index (BMI) Body weight Heart rate Systolic And Diastolic Provider Name and Address Organization Details Last Updated DateTime 06/01/2024 170.18 cm 42.9 kg/m2 694129.8 7 g 77 /min 126/85 mm[Hg] Roxy Pavon [facility] 06/01/2024 13:03:29 Date Recorded Body height Body mass index (BMI) Body weight Heart rate Systolic And Diastolic Provider Name and Address Organization Details Last Updated DateTime 06/24/2024 170.18 cm 43.1 kg/m2 675546.9 g 59 /min 112/71 mm[Hg] Iona teddy [facility] 11:01:52 Social History Question Answer Notes LastModified by [employer] Details LastModified Time Tobacco Smoking Status Never [facility]oker [facility] 14:29:01 Is Blood Transfusion Acceptable In An Emergency? Yes [email or web address] Information not available 04/30/2024 What Is Your Level Of Caffeine Consumption? Moderate [email or web address] Information not available 04/30/2024 What Type Of Diet Are You Following? SPECIFIC Try To Avoid Fried Foods [email or web address] Information not available 04/30/2024 What Is The Highest Grade Or Level Of School You Have Completed Or The Highest Degree You Have Received? [id number] [email or web address] Information not available 04/30/2024 Have You Ever Been Or Currently Are A Victim Of Sexual Abuse? No Information not available 04/30/2024 Have You Ever Been Or Currently Are A Victim Of Physical Abuse? No [email or web address] Information not available 04/30/2024 Have You Ever Been Or Currently Are A Victim Of Emotional Abuse? No [email or web address] Information not available 04/30/2024 What Was The Date Of Your Most Recent Tobacco Screening? 04/30/2024 [email or web address] Information not available 04/30/2024 What Is Your Relationship Status? Single [email or web address] Information not available 04/30/2024 Are You Currently In School? No Information not available 04/30/2024 Sex: Female Functional Status Question Answer Note LastModified by [employer] Details LastModified Time Do you use any illicit or recreational drugs? No [email or web address] Information not available 04/30/2024 Do you or have you ever used any other forms of tobacco or nicotine? No Information not available 04/30/2024 What is your level of alcohol consumption? None Information not available 04/30/2024 Are you currently employed? No Information not available 04/30/2024 What is your exercise level? None Information not available 04/30/2024 Mental Status None recorded. Family History Relationship Description Onset Age of this Age Resolved Age Notes LastModified by Organization Details LastModified Time Father Hypertensive disorder [email or web address] Not available 2023 14:28:10 Mother Rheumatoid arthritis [email or web address] Not available 2023 14:28:26 Medical History No medical history recorded. Gynecological History Statement/Question Response Date of Last Mammogram Age at first intercourse 15 Date of LMP 05/25/2024 History of Dysmenorrhea Y Date of last bone density History of Cervical Dysplasia N Date of Last Colonoscopy Total lifetime partners More than 5 Date of Last Cholesterol Screening History of Fibroids N Current Control Method: Abstinence HPV Vaccine Completed History of Sexually Transmitted Infectio n N History of Vulvar Dysplasia N Age at Menarche 16 History of Infertility N Sexually Active N History of PCOS N History of Recurrent Ovarian Cysts Y Date of Last Pap Smear History of HPV N History of Abnormal PAP N History of Endometriosis N Obstetrics History GPAL:G 0 P 0 0 0 0 Immunizations Vaccine Type Date Status Note Provider Nam e and Address Organization Details Recorded Time Hib, unspecified formulation 2 completed Malgorzata Brown null, [facility] 05/29/2024 13:21:57 Hib, unspecified formulation 3 completed Malgorzata Brown null, [facility] 05/29/2024 13:21:57 Hib, unspecified formulation 2 completed Malogrzata Brown null, [facility] 05/29/2024 13:21:57 Hib, unspecified formulation 2 completed Malgorzata Brown null, [facility] 05/29/2024 13:21:57 IPV 2 completed Malgorzata Brown null, [facility] 05/29/2024 13:21:57 IPV 2 completed Malgorzata Brown null, [facility] 05/29/2024 13:21:57 IPV 2 completed Malgorzata Brown null, [facility] 05/29/2024 13:21:57 Influenza, live, trivalent, intranasal, PF 0 completed Malgorzata Brown null, [facility] 05/29/2024 13:21:57 Influenza, live, trivalent, intranasal, PF 1 completed Malgorzata Brown null, [facility] 05/29/2024 13:21:57 Influenza, live, trivalent, intranasal, PF 0 completed Malgorzata Brown null, [facility] 05/29/2024 13:21:57 Influenza, live, trivalent, intranasal, PF 6 completed Malgorzata Brown null, [facility] 05/29/2024 13:21:57 Influenza, live, trivalent, intranasal, PF 7 completed Malgorzata Brown null, [facility] 05/29/2024 13:21:57 Influenza, live, trivalent, intranasal, PF 2 completed Malgorzata Brown null, [facility] 05/29/2024 13:21:57 Influenza, live, trivalent, intranasal, PF 8 completed Malgorzata Brown null, [facility] 05/29/2024 13:21:57 MMR 5 completed Malgorzata Brown null, [facility] 05/29/2024 13:21:57 MMR 2 completed Malgorzata Brown null, [facility] 05/29/2024 13:21:57 pneumococcal conjugate PCV 7 2 completed Malgorzata Brown null, [facility] 05/29/2024 13:21:57 pneumococcal conjugate PCV 7 2 completed Malgorzata Brown null, [facility] 05/29/2024 13:21:57 pneumococcal conjugate PCV 7 2 completed Malgorzata Brown null, [facility] 05/29/2024 13:21:57 pneumococcal conjugate PCV 7 3 completed Malgorzata Brown null, [facility] 05/29/2024 13:21:57 influenza, unspecified formulation 4 completed Malgorzata Brown null, [facility] 05/29/2024 13:21:57 influenza, unspecified formulation 5 completed Malgorzata Brown null, [facility] 05/29/2024 13:21:57 Tdap 2 completed Malgorzata Brown null, [facility] 05/29/2024 13:21:57 varicella 6 completed Malgorzata Brown null, [facility] 05/29/2024 13:21:57 varicella 2 completed Malgorzata Brown null, [facility] 05/29/2024 13:21:57 Hep B, unspecified formulation 2 completed Malgorzata Brown null, [facility] 05/29/2024 13:21:57 Hep B, unspecified formulation 2 completed Malgorzata Brown null, [facility] 05/29/2024 13:21:57 Hep B, unspecified formulation 1 completed Malgorzata Brown null, [facility] 05/29/2024 13:21:57 polio, unspecified formulation 5 completed Malgorzata Brown null, [facility] 05/29/2024 13:21:57 Influenza, split virus, trivalent, PF 3 completed Malgorzata Brown null, [facility] 05/29/2024 13:21:57 Novel Vdecnasgi-[id number], nasal 9 completed Malgorzata Brown null, [facility] 05/29/2024 13:21:57 Novel Jeomlcwtn-I8T1-44, nasal 9 completed Malgorzata Brown null, [facility] 05/29/2024 13:21:57 Hep A, ped/adol, 2 dose 8 completed Malgorzata Brown null, [facility] 05/29/2024 13:21:57 Hep A, ped/adol, 2 dose 7 completed Malgorzata Brown null, [facility] 05/29/2024 13:21:57 DTaP 2 completed Malgorzata Brown null, [facility] 05/29/2024 13:21:57 DTaP 3 completed Malgorzata Brown null, [facility] 05/29/2024 13:21:57 DTaP 2 completed Malgorzata Brown null, [facility] 05/29/2024 13:21:57 DTaP 2 completed Malgorzata Brown null, [facility] 05/29/2024 13:21:57 DTaP, unspecified formulation 5 completed Malgorzata Brown null, [facility] 05/29/2024 13:21:57 Influenza, live, quadrivalent, intranasal 3 completed Malgorzata Brown null, [facility] 05/29/2024 13:21:57 Past Encounters Encounter ID Performer Location Encounter Start Date Encounter Closed Date Diagnosis/Indication Diagnosis SNOMED-CT Code Diagnosis ICD10 Code Diagnosis IMO Codes Diagnosis Note [id number] CRISTAL RODARTE MD [id number] [address] [place] [address] 04/30/2024 13:54:26 04/30/2024 15:56:00 Irregular intermenstrual bleeding 40302469 N92.1 Pt has hx of pcos. Dermoid cyst 952228214 K 09.[address] atoma of ovary 697133734 D27.January tvus show a 6 cm dermoid cyst. Pt has moved recently to this area and need to continue treatment here. Pt maternal Aunt with hx of ovarian cancer.tvu s done today and continues to show a 6. teratoma like ovary. LO with polycystic appearance . Due to pt fm hx of will draw JR. Obesity 664548055 E66.01 pt has hx of pcos and has struggled with weight always, pt has lost 90 pounds over the past year. We discussed reading the obesity code intermitte nt fasting, exercise 150 min per day and eating lots of fruits and veges and lean proteins and limit the carbs and fats. Pt has recently moved to this area and is living with her Aunt who is present at this visit and confesses to having a lot of unhealthy foods at home. Both pt and her Aunt agree to doing better with food choices. Pt's insurance does not cover glp1's for weight loss. I will start pt on metformin for pcos. Polycystic ovary syndrome 778000370 E28.2 per tvus jan 16 2024. Body mass index 40+ - severely obese 321009004 Z68.41 bmi 42.4 Right lowe r quadrant pain 287355506 R10.31 pt has hx of 6 cm teratoma appearing cyst. 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 Advised I recommend right oophorecto my for removal of the dermoid cyst given it's size. If she desires to retain ovarian tissue on the right, I would be happy to refer her to a specialist for this. Pt is tearful but would like to move forward with scheduling surgery.Wi ll plan for laparoscop ic right oophorecto my/possibl e open procedure. Pt advised if she starts wegovy she will need to hold this medication for 1 week prior to surgery. I have discussed the procedure to be done and reviewed the risks, benefits and alternativ es with the patient. I have discussed the risks of bleeding, infection and damage to other organs and structures such as the bowel, bladder, ureters, blood vessels, nerves. I reviewed the risk of blood transfusio n at the time of surgery. Pt voices understand ing of these risks. All questions have been answered, and informed consent is obtained.Mike Hawkins to contact pt to arrange for surgery date. I personally [id number] utes both face-to-fa ce and non-face-t o-face in the care of this patient. I spent the time doing all or some of the following: preparing to see the patient, reviewing imaging and/or tests, medical records, obtaining and/or reviewing separately obtained history, performing a medically appropriat e exam, discussing differenti al diagnoses, determinin g a diagnosis, counseling and/or educating the patient, managing medication s, making a plan to either further investigat ion or treatment, documentin g clinical informatio n in the electronic medical record, and communicat ing with other clinical team members either in this office or other offices. Please note the total time listed above excludes time spent in the performanc e of other services separately billable. Obesity [id number] Z68.41 [id number] CRISTAL RODARTE MD [id number] [address] [place] [address] 06/01/2024 12:46:17 06/01/2024 13:54:30 Body mass index 30+ - obesity [id number] Z68.41 42.9 BMI 27-29.9 MUST have a comorbidit y to qualify for GLP1.BMI 30 or greater may not need a comorbidit y to qualify for GLP1s pending Prior Auth.Patie nt has tried and failed at least 6 months of structured nutrition and exercise.H as patient tried and failed any of the following medication s (at least Phentermin e, Contrave, Qsymia)? List date started, how long they tried, and if there were any contraindi cations. Be sure to list meds patient has tried and failed prior to being seen in our office:Met forminChoo se any of the comorbidit ies that patient presently has:Metabo lic/Dysfun ction Liver DiseasePCO S List any stimulants or anti-depre ssants that are contraindi cated to the prescripti on for GLP1 and why. * requires phentermin e, Contrave, Qsymia, to be trialed before covering any injectable medication s for weight loss. [id number] MIRANDA BURGOS DO [id number] [address] [place] [address] 06/24/2024 10:51:16 06/24/2024 11:20:07 Postoperative visit [id number] Z09 Pathology shows:A. Right ovary, oophorecto my- Dermoid cyst (benign mono dermal teratoma). Reviewed pathology with patient and copy of report provided to pt.Surgery images reviewed with patient.Pt is doing well. She is recovering well from her surgery. She is instructed on continued postoperat abena care. She may resume usual activities . Health Concerns Section Related Observation LastModified by Organization Detai ls LastModified Time None Recorded Concern Status LastModified by Organization Details LastModified Time None Recorded Advance Directives Directive None Recorded Payers Insurance Date Sequence Insurance Name Policy Number Policy Snow Covered Member ID Snow Member ID Guarantor Name 02/01/2025 1 [employer] [place] DOS ON OR AFTER 2023 (MEDICAID REPLACEMENT - HMO) [id number] Anali L Ana [id number] Anali Ana 05/29/2024 2 [employer] [place] AFTER 2023 (MEDICAID REPLACEMENT - HMO) [id number] Anali Ana [id number] Anali Ana 05/26/2024 1 [employer] [place] [place] ON [place] AFTER 2023 (MEDICAID REPLACEMENT - HMO) [id number] Anali L Ana [id number] Anali Ana 05/26/2024 1 [place] Anali L Ana [id number] Anali Ana 06/23/2024 1 [facility] RESOURCES - PHYSICAL HEALTH - TAILORED PLAN (MEDICAID REPLACEMENT - HMO) Anali L Ana [id number] Anali Ana Notes Date Note Type Note Provider Name and Address Organization Details Recorded Time 04/30/2024 text/html ROS as noted in the HPI New [employer] patient presents with concerns for a cystShe is accompanied by her Aunt PalakPatient states she has hx mass of right ovary 06/2023Most recent imaging was with [facility] revealing mass was at 6 cm per pt.Pt states [facility] wanted to perform surgery but she did not go through with this.Pt states she did not follow up after this visit due to no insuranceShe c/o irregular menses with painful cramping and bloating.LMP: 04/30/24 [employer]ERI [employer] [address], [place], [address], [facility] 05/01/2024 07:48:33 05/29/2024 text/html Pt is here today for consult for management of right ovarian mass.TVUS 04/30/24 showed 6.2 cm dermoid appearing structure - this is not a new finding.JR also collected at last visit with Valeri d/t patient family hx.Pt states she would like to move forward with surgery but she has some anxiety with everything she has heard about lap procedures.Pt states the mass does cause her a lot of pain, abnormal bleeding and she was previously having issues emptying her bladder. Pt state she would lift up on her stomach and that seemed to help her empty her bladder, but she states she is unsure if it is resolved or she just doesn't notice.Pt states she avoids leaning on her right side d/t pain/discomfort causes.Pt is not lifting or squatting because she can feel the mass if she does. Pt is accompanied by her Aunt EdwinaDavid SPRAGUE DO [address], [place], [address], [facility] 05/29/2024 14:05:13 06/01/2024 text/html ROS as noted in the HPI Patient presents today for a follow up of obesity.Patient is only Metformin 500mg ER ONE per day.She states that she is having diarrhea, headaches, excessive bloating.Patient does not work out due to an ovarian cyst. She states it is extremely painful.She does not keep a food diary.She is not following a specific diet.05-29-2024- [phone]- [phone] BMI: 42.9 VALERI [employer] [address], [place], [address], [facility] 06/01/2024 14:06:32 06/24/2024 text/html Post-Op ([facility])Reported by PatientHPIFor procedure date, patient reports06/12/24. For surgical procedure, patient reportsexam under anesthesia yes,laparoscopy: operative, andoophorectomy: right, laparoscopic. For postoperative symptoms, patient reportsno fever,no chills,no fatigue,no shortness of breath,no chest pain,no leg swelling,no nausea,no vomiting,no constipation,no diarrhea,no urinary urgency,no dysuria,no abdominal pain,no pelvic pain,no incisional pain,no incisional redness,no incisional drainage,incision(s) closed,no abnormal bleeding,no menopausal symptoms,no vaginal discharge,no back pain,no shoulder pain,none,pain well-controlled,tole rating po,ambulating,voidin g without difficulty, andreturn to gi function. For postoperative complications, patient reportsnone.Patient presents today for post op visit. Patient had operative laparascopy and right oophorectomy on 06/12/[address] Cross. Today, patient denies any post op issues/concerns. Does note that she has started her period. Normal GI function, bladder and bowel function.ROS as noted in the HPI MIRANDA SPRAGUE DO [address], [place], [address], [facility] 06/24/2024 11:21:30 OBGyn Episode No OBEpisode recorded.
--- OUTSIDE RECORDS SUMMARY | 2025-09-07 16:12 | XMS_ITS | Data Portability ---
Author Organization [place] - [facility], [facility] Address [address] [place] [address] Assessment No assessment recorded. Plan of Treatment Reminders Order Date Submit Date Provider Last Modified By Organization Details Last Modified Time Details Appointments None recorded. Lab rapid flu (A+B) 2024 025 [facility], [address] [place], [address], 5 10:51:48 rapid SARS CoV + SARS CoV 2 Ag, QL IA, respiratory specimen 2024 025 [facility], [address] [place], [address], 5 10:51:48 rapid strep group A, throat 2024 025 [facility], [address] [place], [address], 5 10:51:48 Referral None recorded. Procedures None recorded. Surgeries None recorded. Imaging None recorded. Medication Orders cephalexin 500 mg capsule 2024 025 [facility] #[id number], [address], [place], [id number], 5 11:25:13 mupirocin 2 % topical ointment 2024 025 [facility] #[id number], [address], [place], [id number], 11:25:13 oseltamivir 75 mg capsule 2024 025 [facility] #[id number], [address], [place], [id number], 10:48:23 Bromfed DM 2 mg-30 mg-10 mg/5 mL oral syrup 2024 025 [facility] #[id number], [address], [place], [id number], 10:48:07 Patient TargetsNo targets recorded. Patient InstructionsNo instructions recorded. Reason for Referral None Reported. Results Created Date Observation Date Name Description Value Unit Range Abnormal Flag Note LastModifiedBy Organization Detail LastModifiedTime 09/29/1909/29/2024 rapid SARS CoV + SARS CoV 2 Ag, QL IA, respi rator y speci men Results negati ve Not Available [facility] [address] [place], [address], 09/29/2024 10:28:25 09/29/19 25 09/29/2024 rapid strep group A, throa t Strep negati ve Not Available [facility] [address] [place], [address], 09/29/2024 10:28:43 09/29/19 25 09/29/2024 rapid flu (A+B) Flu A positi ve Not Available [facility] [address] [place], [address], 09/29/2024 10:28:06 09/29/19 25 09/29/2024 rapid flu (A+B) Flu B negati ve Not Available [facility] [address] [facility], [place], [address], 09/29/2024 10:28:06 Result Notes None recorded. Medical Equipment None Reported. Allergies Allergen ID Allergen Name Allergen Category Reaction Reaction Severity Criticality Documentation Date Start Date Code Code System Note Provider Name and Address Organization Details Recorded Time [address] clindamyc in Not available hives Not available Not available 09/29/2024 2582 [facility] Marilyn AKASH Cooper - [facility] 10:17:23 Medications Name Sig Start Date Stop Date Status Note LastModified by Organization Details LastModified Time ibuprofen 800 mg tablet TAKE 1 TABLET BY MOUTH EVERY 8 HOURS NEEDED FOR FEVER OR PAIN 09/29 completed Not Available Not Available Not Available lisinopril 20 mg tablet TAKE 1 TABLET BY MOUTH EVERY DAY 09/29 completed Not Available Not Available Not Available risperidone 2 mg tablet TAKE 1 Tablet BY MOUTH TWICE DAILY 09/29 completed Not Available Not Available Not Available carbamazepi ne 200 mg tablet TAKE 1 Tablet BY MOUTH TWICE DAILY 09/29 completed Not Available Not Available Not Available famotidine 20 mg tablet TAKE 1 TABLET BY MOUTH TWICE DAILY 09/29 completed Not Available Not Available Not Available cephalexin 500 mg capsule TAKE 1 CAPSULE BY MOUTH THREE TIMES DAILY FOR 7 DAYS active Not Available Not Available No t Available oseltamivir 75 mg capsule TAKE 1 CAPSULE BY MOUTH TWICE DAILY FOR 5 DAYS 11/16 completed Not Available Not Available Not Available prednisone 50 mg tablet TAKE 1 TABLET BY MOUTH EVERY DAY AFTER A MEAL 09/29 completed Not Available Not Available Not Available mupirocin 2 % topical ointment APPLY SMALL AMOUNT TOPICALLY TO THE AFFECTED AREA THREE TIMES DAILY active Not Available Not Available No t Available bromphenira mine-pseudo ephedrine-D M 2 mg-30 mg-10 mg/5 mL oral syrup TAKE 10 ML BY MOUTH EVERY 4 HOURS NEEDED FOR COUGH 11/16 completed Not Available Not Available Not Available metformin ER 500 mg tablet,exte nded release 24 hr TAKE 2 TABLETS BY MOUTH EVERY DAY 09/29 completed Not Available Not Available Not Available oxycodone 5 mg tablet TAKE 1 TABLET BY MOUTH EVERY 6 HOURS NEEDED FOR PAIN 09/29 completed Not Available Not Available Not Available hydroxyzine pamoate 25 mg capsule TAKE 1 CAPSULE BY MOUTH TWICE DAILY NEEDED FOR ANXIETY OR STRESS active Not Available Not Available No t Available lurasidone 20 mg tablet TAKE 1 TABLET BY MOUTH EVERY DAY WITH A FATTY MEAL 09/29 completed Not Available Not Available Not Available Banophen 50 mg capsule TAKE 1 CAPSULE BY MOUTH EVERY 4 HOURS NEEDED FOR ITCHING 09/29 completed Not Available Not Available Not Available Vitals Date Recorded Body height Oxygen saturation Body mass index (BMI) Body weight Heart rate Body temperature Systolic And Diastolic Provider Name and Address Organization Details Last Updated DateTime 170.18 cm 99 % 44.9 kg/m2 251261. 85 g 78 /min 98.4 [degF] 126/82 mm[Hg] Marilynvianey Bernal [facility] 10:22:18 Date Recorded Body height Body temperature Heart rate Oxygen saturation Body mass index (BMI) Body weight Systolic And Diastolic Provider Name and Address Organization Details Last Updated DateTime 170.18 cm 97.3 [degF] 75 /min 100 % 49.3 kg/m2 582698. 88 g 122/78 mm[Hg] Marilynvianey Bernal [facility] 10:49:34 Social History None recorded. Functional Status None recorded. Mental Status None recorded. Family History Relationship Description Onset Age of this Age Resolved Age Notes LastModified by Organization Details LastModified Time Father Essential hypertension [email or web address] Not available 10:19:16 Medical History Condition Response Coronary Artery Disease N Gout N Other N Kidney Stones N Blood Diseases N Hyperthyroidism N Blood Transfusion N Breast Cancer N COPD N Hypothyroidism N Lung Disease N Depression N Developmental or Behavioral Disorders N Defects or Inherited Disease N Breast Problem N Difficulty Swallowing N Anesthesia Complications N Meniere's disease N Anxiety Disorder N Muscle, Joint, or Bone Problems N Obesity N Vision or Eye Problems N Arthritis N Infertility N Polyps N Mental Disorder N Cancer N Stroke N Varicosities N Endometriosis N Bladder or Kidney Problems N High Cholesterol N Liver Disease N Headaches N Fibromyalgia N Kidney Disease N Allergies/Hayfever N Heart Problems N Ear or Hearing Problems N Hospitalizations N Thyroid Problems N GI Problems N ADD/ADHD N Eating Disorder N Skin Problems N Anemia N MRSA exposure N Constipation N Mental Illness N Diabetes N Ovarian Cancer N Bedwetting N Seizures/Epilepsy N Tuberculosis N AIDS/HIV N Congestive Heart Failure (CHF) N Eczema N Diverticulitis N Abuse/Domestic Violence N Asthma N Reflux/GERD N Hepatitis N Heart Disease N Pulmonary Embolism N Chronic Ear Infections N Hypertension N Pre-Eclampsia N Chicken Pox N Autism Spectrum Disorder (ASD) N Osteoporosis N Thrombophilias N Gynecological HistoryNo gynecological history recorded. Obstetrics History GPAL:G 0 P 0 0 0 0 Past Encounters Encounter ID Performer Location Encounter Start Date Encounter Closed Date Diagnosis/Indication Diagnosis SNOMED-CT Code Diagnosis ICD10 Code Diagnosis IMO Codes Diagnosis [facility] [id number] [facility] [address] [place] [address] 09/29/2024 10:08:50 09/29/2024 11:06:30 Viral screening 169412074 Z11.59 + flu A Medical ex amination for suspected condition 904370395 Z03.818 negative COVID Acute pharyngitis 404666 003 J02.9 throat is clear, pain likely due to drainage. Negative strep. Continue symptom management with OTC meds and warm salt water gargles. Influenza caused by Influenza A virus 183617943 J09.X2 Influenza A positive, Tamiflu prescribed along with Bromfed. Advised isolation while febrile and symptomati c. F/U here as needed. [id number] DARYL VELASCO [facility] [address] [place] [address] 11/16/2024 10:27:50 11/16/2024 11:29:59 Acute folliculitis 802482672 L73.9 Area is very small it does not need to be lanced at this time. Recommend warm compress or ichthammol type ointment. If the area does open up and drain, may apply Bactroban ointment. In the meantime, we will send in cephalexin 500 mg 3 times a day x 7 days. The area is very minuscule and no fluctuance or firmness noted. Health Concerns Section Related Observation LastModified by Organization Detai ls LastModified Time None Recorded Concern Status LastModified by Organization Details LastModified Time None Recorded Advance Directives Directive None Recorded Payers Insurance Date Sequence Insurance Name Policy Number Policy Snow Covered Member ID Snow Member ID Guarantor Name 11/16/2024 1 [employer] [place] - DOS ON OR AFTER 2023 (MEDICAID REPLACEMENT - HMO) [id number] Anali Perez [id number] Anali Perez Notes Date Note Type Note Provider Name and Address Organization Details Recorded Time 09/29/2024 text/html CoughReported by PatientROS as noted in the HPI Pt c/o sore throat , cough, sinus pressure, ear pain. Pt states she tried otc meds & they are not helping. States today is the 2nd day. She is postive for Flu A today. Negative for COVID & strep. VSS, afebrile at present. She has been taking Dayquil & Tylenol for symptom management. DARYL VELASCO, [place]- [address] [place], [address], [facility] 09/29/2024 11:03:28 11/16/2024 text/html ROS as noted in the HPI Pt states she has a cyst that started being painful a few weeks ago states she has staph last time pt requesting removal. ABRAHAM OLIVEIRA-ARACELY [address] [place], [address], [facility] 11/16/2024 11:40:50 OBGyn Episode No OBEpisode recorded.
--- OUTSIDE RECORDS SUMMARY | 2025-09-07 16:13 | XMS_ITS | Clinical Summary ---
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 [facility] BLOOD ORDERABLES Final Re sult [facility] (ACCREDITED BY [facility]) [address] [place] [id number] * PANORAMA TEST (06/22/2025 12:08 PM EDT) REPORT SUMMARY LOW RISK 06/28/2025 1:16 PM EDT [facility] Comment:LOW RISK REPORT NOTE See Notes 06/28/2025 1:16 PM EDT [facility] GENDER OF FETUS Male 1:16 PM EDT [facility] FRACTION 14.8% 06/28/2025 1:16 PM EDT [facility] TRISOMY 21 RESULT TEXT Low Risk 06/28/2025 1:16 PM EDT [facility] TRISOMY 21 AGE-BASED RISK TEXT 09/16,527 (0.07%) 06/28/2025 1:16 PM EDT [facility] TRISOMY 21 RISK SCORE TEXT <1/10,000 (<0.01%) 06/28/2025 1:16 PM EDT [facility] TRISOMY 18 RESULT TEXT Low Risk 06/28/2025 1:16 PM EDT [facility] TRISOMY 18 AGE-BASED RISK TEXT <1/10,000 (<0.01%) 06/28/2025 1:16 PM EDT [facility] TRISOMY 18 RISK SCORE TEXT <1/10,000 (<0.01%) 06/28/2025 1:16 PM EDT [facility] TRISOMY 13 RESULT COMMENTS Low Risk 06/28/2025 1:16 PM EDT [facility] TRISOMY 13 AGE-BASED RISK TEXT <1/10,000 (<0.01%) 06/28/2025 1:16 PM EDT [facility] TRISOMY 13 RISK SCORE TEXT <1/10,000 (<0.01%) 06/28/2025 1:16 PM EDT [facility] MONOSOMY X RESULT TEXT Low Risk 06/28/2025 1:16 PM EDT [facility] MONOSOMY X AGE-BASED RISK TEXT 1/10,000 (0.01%) 06/28/2025 1:16 PM EDT [facility] MONOSOMY X RISK SCORE TEXT <1/10,000 (<0.01%) 06/28/2025 1:16 PM EDT [facility] TRIPLOIDY RESULT TEXT Low Risk 1:16 PM EDT [facility] 22Q11.2 DELETION SYNDROME RESULT TEXT Low Risk 06/28/2025 1:16 PM EDT [facility] 22Q11.2 DELETION SYNDROME POPULATION-BASED RISK TEXT 1/2,000 06/28/2025 1:16 PM EDT [facility] 22Q11.2 DELETION SYNDROME RISK SCORE TEXT 1/12,000 06/28/2025 1:16 PM EDT [facility] FOOTNOTES See Notes 06/28/2025 1:16 PM EDT [facility] Comment: Testing Methodology DNA isolated from maternal blood, which contains placental DNA, is amplified at specific loci using a targeted PCR assay and is sequenced using a high- throughput sequencer. fraction is determined using a proprietary algorithm incorporating data from single nucleotide polymorphism-based (SNP-based) next-generation sequencing [Pergabertram E et al. Obstet Gynecol. 2014 Aug;124(2 Pt 1):210-8]. If there is sufficient fraction, sequencing data is analyzed using a proprietary SNP- based algorithm to determine the copy number for chromosomes 13, 18, 21, X and Y. If ordered, specific microdeletions will be evaluated using similar methodology [Daya MONAHAN et al. Am J Obstet Gynecol. 2015 Mar;212(3):332.e1-9]. If the fraction is insufficient, an additional algorithm to determine whether there is an increased risk for triploidy, trisomy 18, and trisomy 13 may be utilized, known as fraction based risk assessment (FFBR) [Buddy et al. Ultrasound Obstet Gynecol 2019; 53:73-79]. If ordered on a vanishing twin , a proprietary analysis will be performed to differentiate between the viable/living fetus and the vanished fetus to allow for risk assessment of copy number of chromosomes 13,18, 21, X, Y, and specific microdeletions in the viable/living twin using the above described SNP- based algorithm. If ordered, and patient is RHD negative by genotype, RHD status will be evaluated using a proprietary algorithm if fraction is sufficient [Vance Song et al. Obstet Gynecol 202;145:1?7]. However, some samples will not produce a result due to failure to meet the necessary quality thresholds. This test has been validated on women with a hawk, twin, vanishing twin, or egg donor of at least nine weeks gestation. A result will not be available for higher order multiples and multiple gestation pregnancies with an egg donor or surrogate, or bone marrow transplant recipients. Complete test panel is not available for twin gestations and pregnancies achieved with an egg donor or surrogate. For twin pregnancies with a fraction value below the threshold for analysis, a sum of the fractions for both twins will be reported. As this assay is a screening test and not diagnostic, false positives and false negatives can occur. High risk test results need diagnostic confirmation by alternative testing methods. Low risk results do not fully exclude the diagnosis of any of the syndromes nor do they exclude the possibility of other chromosomal abnormalities or defects, which are not a part of this test. Potential sources of inaccurate results include, but are not limited to, mosaicism, low fraction, limitations of current diagnostic techniques, or misidentification of samples. This test will not identify all deletions associated with each microdeletion syndrome. This test has been validated for deletions ?0.5 Mb within the 22q11.2 A-D region. This test has been validated on full region deletions only for 1p36 deletion syndrome, Cri-du-chat syndrome, Prader Willi syndrome and Angelman syndrome and may be unable to detect smaller deletions. Microdeletion risk score may be dependent upon fraction, as deletions on the maternally inherited copy are difficult to identify at lower fractions. Test results should always be interpreted by a clinician in the context of clinical and familial data with the availability of genetic counseling when appropriate. Disclaimers The extraction, library preparation, and sequencing of this test were performed by [employer] [address], [place] [address] (CLIA ID [id number]). The data analysis and reporting of this test were performed by [facility] [address], [place] [address] (CLIA ID [id number]). The performance characteristics of this test were developed by [facility].(CLIA ID [id number]). This test has not been cleared or approved by the U.S. Food and Drug Administration (FDA). These laboratories are regulated under CLIA as qualified to perform high-complexity testing. 2024 [employer]. All Rights Reserved. Please refer to the attached PDF report Reviewed By: Meagan Parnell M.D., Ph.D., [facility], Senior Sewing Machine Operator [employer] [facility] Rn Security: Denita Sheikh, Ph.D., [facility] IF THE ORDERING PROVIDER HAS QUESTIONS OR WISHES TO DISCUSS THE RESULTS, PLEASE CONTACT US AT [phone], option 2. Ask for the NIPT genetic counselor air support control officer. Blood VENOUS STRUCTURE / Unknown Venipuncture / Unknown 06/22/2025 12:08 PM EDT 06/22/2025 12:08 PM EDT us Janelle [facility] BLOOD ORDERABLES Final Re sult [facility] [address] [place] [address], from Last 3 Months Insurance [facility] MEDICA[facility] - [place] BLUE Care Teams Refueling Ramp Attendant Relationship Specialty Start Date End Date Unassigned, MD [place] PCP - General Family Medicine 03/29/25 Additional Source Comments PROHIBITION ON REDISCLOSURE: In [...] prosecute any alcohol or drug abuse patient. Urgent Career [facility] (a.k.a. [employer] CRV)
--- OUTSIDE RECORDS SUMMARY | 2025-09-07 16:13 | XMS_ITS | Clinical Summary ---
Author Organization Healthcare Address [address] [place] [address] Care Team Providers Care Overhead Distribution Engineer Name Role Phone Diana Dickson AIDE Primary Care Provider [phone] Allergies Active Allergy Reactions Criticality Noted Date Comments Clindamycin Hives Medium 01/04/2022 Medications busPIRone (Buspar) 15 MG tablet 02/12/2023 Active diclofenac (Voltaren) 75 MG EC tablet Take 75 mg by mouth. 01/05/2023 Active lisinopril 20 MG tablet Take 20 mg by mouth 1 (one) time each day. 01/13/2023 Active Social History Tobacco Use Types Packs/Day Years Used Date Smoking Tobacco: Never Passive Smoke Exposure: Never Smokeless Tobacco: Never Tobacco Cessation:Counseling Given: Not Answered Comments Unknown Sex and Gender Information Value Date Recorded Sex Assigned at Not on file Legal Sex Female 12:06 PM EDT Gender Identity Not on file Sexual Orientation Not on file Plan of Treatment Health Maintenance Due Date Last Done Comments [facility]-Depression Screening 2001 [facility]-/Child/Adol SDOH Screenings 2001 [facility]-Varicella Vaccines (1 of 2 - 13+ 2-dose series) 2014 HPV Vaccines (1 - 3-dose series) 2016 [facility]- SDOH Screenings 2019 [facility]-Adult SDOH Screenings 2019 [facility]-Hepatitis B Vaccines (1 of 3 - 19+ 3-dose series) 2020 [facility]-Pap Smear 2022 [id number] Vaccine ( - 25-26 season) 2025 [facility]-Influenza Vaccine (#1) 2025 [facility]-DTaP,Tdap,and Td Vaccine s (2 - Td or Tdap) 02/12/2032 02/11/2022 [facility]-Zoster Vaccines (1 of 2) 2051 [facility]-HIB Vaccines Aged Out No longer e ligible based on patient's age to complete this topic [facility]-Hepatitis A Vaccines Aged Out No longer eligible based on patient's age to complete this topic [facility]-IPV Vaccines Aged Out No longer e ligible based on patient's age to complete this topic [facility]-Pneumococcal Vaccine: Pediatrics (0 to 5 Years) and At-Risk Patients (6 to 49 Years) Aged Out No long er eligible based on patient's age to complete this topic [facility]-Rotavirus Vaccines Aged Out No lo nger eligible based on patient's age to complete this topic Insurance [employer] Care Teams Overhead Distribution Engineer Relationship Specialty Start Date End Date Diana Dickson APRN [address] [place] [address] PCP - General 12/03/22
== END ==
PROVIDERS: PCP Nurse Practitioner
DX: R69 Illness, unspecified (principal)